=== PATIENT | male | born 1965 | race American Indian/Alaskan Native ===

== ENCOUNTER 2022-02-24 11:33 | Inpatient (IN) | payer BC ==
--- NOTE | 2022-02-24 12:52 | Emergency Department Report ---
ED General Adult HPI - General Chief complaint: Weakness Stated complaint: DR EDMONDS/DEHYDRATED Time Seen by Provider: 02/24/22 12:36 Source: patient, RN notes reviewed Mode of arrival: Ambulatory Limitations: No Limitations - History of Present Illness Initial comments: The patient was evaluated in the emergency department for symptoms described in the history of present illness. He/she was evaluated in the context of the global COVID-19 pandemic, which necessitated consideration that the patient might be at risk for infection with the virus that causes COVID-19. Institutional protocols and algorithms that pertain to the evaluation of patient s at risk for COVID-19 are in a state of rapid change based on information released by regulatory bodies including the CDC and federal and state organizations. These policies and algorithms were followed during the patient's care in the emergency department. Please note that these policies, procedures and recommendations changed on a rapid basis. This is a pleasant and cooperative 56-year-old gentleman, with reported history of bipolar, does not know his current medications, does not think that he is currently on valproic acid, Depakote, or lithium, who is referred to the department by his foxing closer for A. fib/flutter with RVR. Patient reported to triage nurse that he does have a history of A. fib, but thinks he may have had an ablation. He endorses very mild shortness of breath. He denies physical pain. No complaint of homicidality, suicidality, overdose or hallucinations. H e also denies recreational drug use, as well as bright red blood per rectum. Patient believes he has a distant history of A. fib, but believes it has been resolved for quite some time. Denies a history of ablation. Reports prior admissions to [facility], as well as [facility]. Does not current ly have a electric meter setter. Is not aware that he is currently in A. fib/flutter, does not know how long he has been in this rhythm for -: unknown - Related Data Allergies Allergy/AdvReac Type Severity Reaction Status Date / Time No Known Allergies Allergy Unverified 02/24/22 13:06 ED Review of Systems ROS: Stated complaint: DR EDMONDS/DEHYDRATED Other details as noted in HPI Constitutional: denies: fever Eyes: denies: eye discharge ENT: denies: epistaxis Respiratory: SOB at rest. denies: cough Cardiovascular: palpitations. denies: chest pain Gastrointestinal: denies: abdominal pain, hematemesis, melena, hematochezia Genitourinary: denies: dysuria Musculoskeletal: denies: myalgia Neurological: denies: weakness Psychiatric: denies: homicidal thoughts, suicidal thoughts ED Past Medical Hx - Past Medical History Hx Hypertension: Yes Additional medical history: Bipolar, insomnia, GI bleed, A.fib - Surgical History Additional Surgical History: ulcer repair, back surgery - Social History Smoking Status: Never Smoker ED Physical Exam - General Limitations: No Limitations General appearance: alert, anxious - Head Head exam: Present: atraumatic, normocephalic - Eye Eye exam: Present: normal appearance, EOMI. Absent: nystagmus - ENT ENT exam: Present: normal exam, normal orophraynx, mucous membranes moist, normal external ear exam - Neck Neck exam: Present: normal inspection, full ROM. Absent: tenderness, meningismus - Respiratory Respiratory exam: Present: normal lung sounds bilaterally. Absent: respiratory distress, wheezes, rales, rhonchi, stridor, decreased breath sounds - Cardiovascular Cardiovascular Exam: Present: tachycardia, irregular rhythm, normal heart sounds. Absent: systolic murmur, diastolic murmur, rubs, gallop - GI/Abdominal GI/Abdominal exam: Present: soft. Absent: distended, tenderness, guarding, rebound, rigid, pulsatile mass - Rectal Rectal exam: Present: deferred - Extremities Exam Extremities exam: Present: normal inspection, full ROM, pedal edema, other (2+ pulses noted in the bilateral upper and lower extremities. There is no palpable cord. negative Homans sign. Muscular compartments are soft. The pelvis is stable.). Absent: calf tenderness - Back Exam Back exam: Present: normal inspection. Absent: tenderness, CVA tenderness (R), CVA tenderness (L), paraspinal tenderness, vertebral tenderness - Neurological Exam Neurological exam: Present: alert, oriented X3, other (No facial droop. Tongue midline. Extraocular movements intact bilaterally. Facial sensation intact to light touch in V1, V2, V3 distribution bilaterally. 5 and a 5 strength in 4 extremities. Sensation intact to light touch in 4 extremities.). Absent: motor sensory deficit - Psychiatric Psychiatric exam: Present: normal affect, normal mood - Skin Skin exam: Present: warm, dry, intact, normal color. Absent: rash ED Course Vital Signs 02/24/22 02/24/22 02/24/22 11:37 13:06 13:17 Temperature 98.9 F Pulse Rate 79 181 H 160 H Respiratory 14 14 Rate Blood Pressure 112/66 94/58 Blood Pressure 110/65 [Left] O2 Sat by Pulse 99 100 Oximetry 02/24/22 13:30 Temperature Pulse Rate 156 H Respiratory Rate Blood Pressure 94/58 Blood Pressure [Left] O2 Sat by Pulse Oximetry - Reevaluation(s) Reevaluation #1: 02/24/22 13:14 Differential diagnosis, including but not limited to: A. fib with RVR, a flutter with RVR, electrolyte derangement, thyroid derangement Assessment and plan: 56-year-old gentleman, with narrow complex irregular tachycardia, who is clinically sober, in no acute distress. Blood pressure reviewed and appreciated, however, patient currently denies chest pain and shortness of breath. He is mentating appropriately at this time. Trial dose of diltiazem x2. If no success, start amiodarone. Low threshold to admit to stepdown versus ICU setting. If patient requires initiation of amiodarone, we will consult cardiology Reassess Discussed this plan of care with the patient. He is agreeable to the plan of care 02/24/22 14:25 Reevaluation #2: 02/24/22 13:15 He denies contraindications to systemic anticoagulation Patient did not really respond to diltiazem. He continues to rest comfortably. We will start amiodarone, 75 mg bolus, followed by drip. Have requested cardiology consultation, discussed with Roman Mendoza, nurse practitioner electric meter setter, working with [facility] cardiology. His group will follow in consultation. Laboratory studies show renal insufficiency and metabolic acidosis as well as hypomagnesemia. I have reached out to the patient's primary foxing closer, Annalisa Santiago He will follow in consultation. Request gentle fluids and maintenance fluids. Hospital physician, Dr. Alfred to admit. 1 points Stroke risk was 0.6% per year in >90,000 patients (the [place] Atrial Fibrill ation Cohort Study) and 0.9% risk of stroke/TIA/systemic embolism. RFANKO?DS?-VASc Score for Atrial Fibrillation Stroke Risk One recommendation suggests a 0 score for men or 1 score for women (no clinical risk factors) is low risk and may not require anticoagulation; a 1 score for men or 2 score for women is low-moderate risk and should consider antiplatelet or anticoagulation; and a score ?2 for men or ?3 for women is moderate-high risk and should otherwise be an anticoagulation candidate. We will order aspirin 02/24/22 13:59 02/24/22 14:19 ED Medical Decision Making - Lab Data Result diagrams: 02/24/22 12:57 02/24/22 12:57 Vital Signs 02/24/22 02/24/22 11:37 13:06 Temperature 98.9 F Pulse Rate 79 181 H Respiratory 14 Rate Blood Pressure 112/66 94/58 O2 Sat by Pulse 99 Oximetry - EKG Data -: EKG Interpreted by Ut Rate: tachycardia - EKG Data 02/24/22 13:13 There is no prior EKG available for comparison. The EKG shows a narrow complex irregular tachycardia, A. fib versus flutter. QTc 4 8 6 ms. Left ventricular hypertrophy. OH interval 3 1 6 ms. This is an abnormal EKG. This is not a STEMI but there is no prior for comparison - Radiology Data Radiology results: pending Critical Care Time: Yes Critical care time in (mins) excluding proc time.: 35 Critical care attestation.: If time is entered above; I have spent that time in minutes in the direct care of this critically ill patient, excluding procedure time. ED Disposition Clinical Impression: Atrial fibrillation with RVR, Renal insufficiency, Hypomagnesemia Disposition: ADMITTED INPATIENT Is pt being admited?: Yes Does the pt Need Aspirin: No Condition: Serious Referrals: TRUE BRIGGS MD [Primary Care Provider] - 3-5 Days
[2022-02-24] MEDS ORDERED: dilTIAZem 25 MG/5 ML INJ IV ONE ×2 (12:53→13:21)
[2022-02-24 13:24] LABS: Basophils # (Auto) 0.2 K/mm3 (0.0-0.1); Basophils % (Auto) 2.4 % (0.0-1.8); Eosinophils # (Auto) 0.2 K/mm3 (0.0-0.4); Eosinophils % (Auto) 2.7 % (0.0-4.3); Hematocrit 33.5 % (35.5-45.6); Lymphocytes # (Auto) 1.9 K/mm3 (1.2-5.4); Lymphocytes % (Auto) 28.7 % (13.4-35.0); Mean Corpuscular HGB Conc 33 % (32-34); Mean Corpuscular Volume 92 fl (84-94); Monocytes # (Auto) 0.8 K/mm3 (0.0-0.8); Monocytes % (Auto) 12.5 % (0.0-7.3); Platelet Count 169 K/mm3 (140-440); Red Blood Count 3.63 M/mm3 (3.65-5.03); Red Cell Distribution Width 14.7 % (13.2-15.2)
--- NOTE | 2022-02-24 13:26 | XRay Report ---
CHEST 1 VIEW 02/24/2022 1:11 PM INDICATION / CLINICAL INFORMATION: a fib rvr renal insufficiency. COMPARISON: None available. FINDINGS: SUPPORT DEVICES: None. HEART / MEDIASTINUM: No significant abnormality. LUNGS / PLEURA: No significant pulmonary or pleural abnormality. No pneumothorax. ADDITIONAL FINDINGS: No significant additional findings. IMPRESSION: 1. No acute findings. Signer Name: Ethan Lance MD Signed: 02/24/2022 1:22 PM Workstation Name: [id number]
[2022-02-24 13:38] LABS: INR 1.01 (0.87-1.13); Partial Thromboplastin Time 28.1 Sec. (24.2-36.6)
[2022-02-24 13:44] LABS: Albumin 4.6 g/dL (3.9-5); Calcium 8.5 mg/dL (8.4-10.2)
[2022-02-24] MEDS ORDERED: MAGNESIUM SULFATE 2 GM/50 ML BAG IV ONE (13:47)
[2022-02-24] MEDS ORDERED: AMIODARONE 75 MG in DEXTROSE 5% IN WATER 97 ML IV NR (13:54)
[2022-02-24] MEDS ORDERED: HEPARIN 10,000 UNITS/10 ML VIAL IV PRN (13:56)
[2022-02-24] MEDS ORDERED: HEPARIN 10,000 UNITS/10 ML VIAL IV ONE ×2 (13:56→16:00)
[2022-02-24] MEDS ORDERED: SODIUM CHLORIDE 0.9% 250ML 250 ML IV ONE (14:00)
[2022-02-24] MEDS ORDERED: ASPIRIN 81 MG TAB CHEW PO ONE (14:20)
[2022-02-24] MEDS ORDERED: HEPARIN/ 0.45% NACL DRIP 25,000 UNIT/500 ML BAG IV SCH (15:00)
--- NOTE | 2022-02-24 15:16 | History and Physical Report ---
History of Present Illness Chief complaint: My heart is beating fast History of present illness: 56 YO Male with HTN, Atrial Fib not currently taking therapeutic anticoagulation, Bipolar Disorder presents to ED for evaluation. Patient reports "my heart is beating fast". 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 Upon arrival and during his evaluation the patient was found to have a heart rate in the 180s. Patient found to be in atrial fibrillation with RVR. Patient was instructed to seek further care at [facility]. Patient transported to [facility] via private vehicle for further care and evaluation of the aforementioned symptoms. The patient was seen and evaluated in the emergency department. All lab and imaging studies reviewed. Patient found to have atrial fibrillation with rapid ventricular response with a heart rate in the 180s, with ATN, metabolic acidosis, elevated liver function test. Patient admitted to telemetry due to increased risk of worsening symptoms and for medical stabilization. Patient initiated on amiodarone drip with eventual control of patient heart rate. Cardiology team consulted in ED. Nephrology team consulted in ED. Patient denies fever, chills, chest pain, palpitation, productive cough, skin rash, recent contact, or known exposure to COVID-19. No prior admission for review. All medication listed at time of admission has been reconciled. Advanced care planning conducted in ED. GI team consulted in ED due to history of esophageal varices. Past History Past Medical History: atrial fib, hypertension, other (See HPI) Past Surgical History: Other (Back surgery, esophageal varices banding) Social history: , lives with family Family history: diabetes, hypertension Medications and Allergies Allergies Allergy/AdvReac Type Severity Reaction Status Date / Time No Known Allergies Allergy Unverified 02/24/22 13:06 Active Meds: Active Medications Amiodarone HCl 900 mg/ (Dextrose) 500 mls @ 33.333 mls/hr IV DIRECT JUNIOR; Protocol Amiodarone HCl 75 mg/ Dextrose 98.5 mls @ 600 mls/hr IV ONCE NR Stop: 02/24/22 16:00 Review of Systems Constitutional: no weight loss, no weight gain, no fever, no chills Ears, nose, mouth and throat: no ear pain, no decreased hearing, no sinus pressure, no sinus pain Cardiovascular: no chest pain, no orthopnea, no palpitations, no rapid/irregular heart beat, no shortness of breath Respiratory: no cough, no cough with sputum, no hemoptysis, no shortness of breath Gastrointestinal: no abdominal pain, no vomiting, no constipation, no change in bowel habits, no hematemesis Genitourinary Male: no dysuria, no hematuria, no discharge, no urinary frequency, no urinary hesitancy Rectal: no pain, no incontinence, no bleeding Musculoskeletal: no shooting arm pain, no arm numbness/tingling, no leg numbness/tingling Integumentary: no rash, no redness, no wounds, no jaundice Neurological: no paralysis, no weakness, no numbness, no tremors, no lack of coordination Psychiatric: no memory loss, no change in sleep habits, no sleep disturbances Endocrine: no cold intolerance, no excessive thirst, no polydipsia, no excessive sweating Hematologic/Lymphatic: no easy bruising Allergic/Immunologic: no urticaria, no allergic rhinitis, no wheezing Exam - Constitutional Vitals: Temp Pulse Resp BP Pulse Ox 98.9 F 156 H 14 94/58 100 02/24/22 11:37 02/24/22 13:30 02/24/22 13:17 02/24/22 13:30 02/24/22 13:17 General appearance: Present: mild distress - EENT Eyes: Present: PERRL ENT: hearing intact, clear oral mucosa - Neck Neck: Present: supple, normal ROM - Respiratory Respiratory effort: normal Respiratory: bilateral: CTA - Cardiovascular Heart Sounds: Present: S1 & S2. Absent: rub, click - Extremities Extremities: pulses symmetrical, No edema Peripheral Pulses: within normal limits - Abdominal General gastrointestinal: Present: soft, non-tender, non-distended, normal bowel sounds Male genitourinary: Present: normal - Integumentary Integumentary: Present: clear, warm, dry - Musculoskeletal Musculoskeletal: gait normal, strength equal bilaterally - Psychiatric Psychiatric: appropriate mood/affect, intact judgment & insight - Neurologic Neurologic: CNII-XII intact, moves all extremities Results - Labs CBC & Chem 7: 02/24/22 12:57 02/24/22 12:57 Labs: Abnormal lab results 02/24/22 02/24/22 02/24/22 Range/Units 12:57 12:57 12:57 RBC 3.63 L (3.65-5.03) M/mm3 Hgb 11.0 L (11.8-15.2) gm/dl Hct 33.5 L (35.5-45.6) % [place] % (Auto) 12.5 H (0.0-7.3) % Baso % (Auto) 2.4 H (0.0-1.8) % Baso # (Auto) 0.2 H (0.0-0.1) K/mm3 Sodium 135 L (137-145) mmol/L Chloride 97.7 L (98-107) mmol/L Carbon Dioxide 16 L (22-30) mmol/L BUN 28 H (9-20) mg/dL Creatinine 5.0 H (0.8-1.3) mg/dL Glucose 114 H (75-100) mg/dL Magnesium 1.50 L (1.7-2.3) mg/dL AST 227 H (5-40) units/L ALT 124 H (7-56) units/L Alkaline Phosphatase 170 H (35-129) units/L Total Creatine Kinase 333 H (55-170) units/L Salicylates < 0.3 L (2.8-20.0) mg/dL Acetaminophen (10.0-30.0) ug/mL Valproic Acid 15.9 L (50-100) ug/mL 02/24/22 Range/Units 12:57 RBC (3.65-5.03) M/mm3 Hgb (11.8-15.2) gm/dl Hct (35.5-45.6) % [place] % (Auto) (0.0-7.3) % Baso % (Auto) (0.0-1.8) % Baso # (Auto) (0.0-0.1) K/mm3 Sodium (137-145) mmol/L Chloride (98-107) mmol/L Carbon Dioxide (22-30) mmol/L BUN (9-20) mg/dL Creatinine (0.8-1.3) mg/dL Glucose (75-100) mg/dL Magnesium (1.7-2.3) mg/dL AST (5-40) units/L ALT (7-56) units/L Alkaline Phosphatase (35-129) units/L Total Creatine Kinase (55-170) units/L Salicylates (2.8-20.0) mg/dL Acetaminophen 5.0 L (10.0-30.0) ug/mL Valproic Acid (50-100) ug/mL Assessment and Plan - Patient Problems (1) Atrial fibrillation with RVR Current Visit: Yes Status: Acute Plan to address problem: Amiodarone drip initiated in ED, cardiology team consulted in ED, echocardiogram ordered and pending at time of admission, telemetry monitoring, further care and evaluation as per cardiology team. (2) Elevated liver function tests Current Visit: Yes Status: Acute Plan to address problem: Repeat LFT in a.m., supportive care. (3) Acute kidney injury (SHELLIE) with acute tubular necrosis (ATN) Current Visit: Yes Status: Acute Plan to address problem: Nephrology team consulted in ED, strict I's/O, monitor urine output every shift, daily weight, (4) Metabolic acidosis Current Visit: Yes Status: Acute Plan to address problem: IV fluid resuscitation therapy, BMP, repeat BMP in AM. (5) Bipolar disorder Current Visit: Yes Status: Acute Plan to address problem: Continue medical management, no acute exacerbation at this time, supportive care. (6) DVT prophylaxis Current Visit: Yes Status: Acute Plan to address problem: SCD to bilateral ultimately while in bed (7) Advance care planning Current Visit: Yes Status: Acute Plan to address problem: Disease education data, care plan discussed, diagnoses discussed, prognosis discussed, patient is full code. Patient knowledges understanding and agreement with care plan, +30 minutes. (8) Preventative health care Current Visit: Yes Status: Acute Plan to address problem: Patient counseled regarding risk factor reduction, medication compliance, outpatient follow-up with primary care physician for all age and risk factor appropriate screening test. +30 minutes.
[2022-02-24] MEDS ORDERED: ACETAMINOPHEN 325 MG TAB PO PRN (15:18)
[2022-02-24] MEDS ORDERED: oxyCODONE /ACETAMINOPHEN 5-325MG TAB PO PRN (15:18)
[2022-02-24] MEDS ORDERED: ONDANSETRON 4 MG/2 ML INJ IV PRN (15:18)
[2022-02-24] MEDS ORDERED: MORPHINE 4 MG/1 ML INJ IV PRN (15:18)
--- NOTE | 2022-02-24 15:26 | Consultation ---
History of Present Illness Consult date: 02/24/22 Requesting physician: HALINA AVILA History of present illness: Patient is a 56 y/o old male with a past medical history of CKD, bipolar disorder, PAF who reports to the ED today after being sent by his band attacher office. Patient reports that at his band attacher office he was found to be in A. fib with RVR and dehydrated and told to come to the ED for further evaluation. Patient at this time denies any complaints including palpitations, shortness of breath, dizziness, chest pain. Patient reports that he has been told he has had A. fib in the past however he reports that he has not been on anticoagulation and has not seen a health coach in over 15 years. Patient also reports a history of esophageal varices. He reports that he had a procedure to fix them. In the ED patient was found to be in A. fib with RVR rate up into the 170s. In the ED patient was given diltiazem with no reduction in heart rate. Patient is previously unknown to our practice. Cardiology is consulted for A. fib with RVR Past History Past Medical History: atrial fib, other (CKD) Past Surgical History: Other (Surgery for varices) Social history: other (Reports former ETOH use) Family history: diabetes Medications and Allergies Allergies Allergy/AdvReac Type Severity Reaction Status Date / Time No Known Allergies Allergy Unverified 02/24/22 13:06 Active Meds: Active Medications Acetaminophen (Acetaminophen 325 Mg Tab) 650 mg PO Q4H PRN PRN Reason: Pain MILD(1-3)/Fever >100.5/HURLEY Amiodarone HCl 900 mg/ (Dextrose) 500 mls @ 33.333 mls/hr IV DIRECT JUNIOR; Protocol Amiodarone HCl 75 mg/ Dextrose 98.5 mls @ 600 mls/hr IV ONCE NR Stop: 02/24/22 16:00 Morphine Sulfate (Morphine 4 Mg/1 Ml Inj) 2 mg IV Q8H PRN PRN Reason: Pain , Severe (7-10) Ondansetron HCl (Ondansetron 4 Mg/2 Ml Inj) 4 mg IV Q8H PRN PRN Reason: Nausea And Vomiting Oxycodone/Acetaminophen (Oxycodone /Acetaminophen 5-325mg Tab) 1 tab PO Q12H PRN PRN Reason: Pain, Moderate (4-6) Sodium Chloride (Sodium Chloride 0.9% 10 Ml Flush Syringe) 10 ml IV BID JUNIOR Sodium Chloride (Sodium Chloride 0.9% 10 Ml Flush Syringe) 10 ml IV PRN PRN PRN Reason: LINE FLUSH Review of Systems Constitutional: no weight loss, no weight gain Ears, nose, mouth and throat: no sinus pressure, no sinus pain Cardiovascular: no chest pain, no orthopnea, no palpitations, no lighthe adedness, no shortness of breath, no dyspnea on exertion Respiratory: no shortness of breath, no dyspnea on exertion Gastrointestinal: no abdominal pain, no nausea, no vomiting Musculoskeletal: no neck stiffness, no neck pain Integumentary: no rash, no pruritis, no redness Neurological: no head injury, no transient paralysis Psychiatric: no anxiety, no memory loss Endocrine: no cold intolerance, no heat intolerance Physical Examination Vital Signs Temp Pulse Resp BP Pulse Ox 98.9 F 79 14 112/66 99 02/24/22 11:37 02/24/22 11:37 02/24/22 11:37 02/24/22 11:37 02/24/22 11:37 General appearance: no acute distress Neck: Positive: trachea midline Cardiac: Positive: irregularly irregular, Tachycardia Lungs: Positive: Normal Breath Sounds Neuro: Positive: Grossly Intact Abdomen: Positive: Soft Skin: Negative: Rash, Suspicious Lesions, Ulceration Extremities: Present: upper extr. pulses. Absent: edema Results 02/24/22 12:57 02/24/22 12:57 Cardiac Enzymes 02/24/22 Range/Units 12:57 AST 227 H (5-40) units/L Coagulation 02/24/22 Range/Units 12:57 PT 14.7 (12.2-14.9) Sec. INR 1.01 (0.87-1.13) APTT 28.1 (24.2-36.6) Sec. CBC 02/24/22 Range/Units 12:57 WBC 6.7 (4.5-11.0) K/mm3 RBC 3.63 L (3.65-5.03) M/mm3 Hgb 11.0 L (11.8-15.2) gm/dl Hct 33.5 L (35.5-45.6) % Plt Count 169 (140-440) K/mm3 Lymph # (Auto) 1.9 (1.2-5.4) K/mm3 [place] # (Auto) 0.8 (0.0-0.8) K/mm3 Eos # (Auto) 0.2 (0.0-0.4) K/mm3 Baso # (Auto) 0.2 H (0.0-0.1) K/mm3 Comprehensive Metabolic Panel 02/24/22 Range/Units 12:57 Sodium 135 L (137-145) mmol/L Potassium 4.1 (3.6-5.0) mmol/L Chloride 97.7 L (98-107) mmol/L Carbon Dioxide 16 L (22-30) mmol/L BUN 28 H (9-20) mg/dL Creatinine 5.0 H (0.8-1.3) mg/dL Glucose 114 H (75-100) mg/dL Calcium 8.5 (8.4-10.2) mg/dL AST 227 H (5-40) units/L ALT 124 H (7-56) units/L Alkaline Phosphatase 170 H (35-129) units/L Total Protein 8.1 (6.3-8.2) g/dL Albumin 4.6 (3.9-5) g/dL - Imaging and Cardiology Echo: pending EKG interpretations - Telemetry EKG Rhythm: Atrial Fibrillation - EKG Supraventricular dysrhythmia: atrial fibrillation Repolarization changes or abnormalities: nonspecific abnormality, ST segment, and/or T wave Assessment and Plan Patient is a 56 y/o old male with a past medical history of CKD, bipolar disorder, PAF who reports to the ED today after being sent by his band attacher office after being found in A. fib with RVR and being told he was dehydrated Afib with RVR CKD-nephrology consulted Bipolar disorder Hypomagnesemia Plan: EKG shows A. fib with RVR 180 nonspecific T abnormalities. No acute ischemic changes. Patient denies any complaints of chest pain Patient has soft BPs, initiate half amiodarone bolus and drip LFTs noted to be elevated. We will repeat LFTs in the a.m. due to patient currently on amiodarone While patient H&H is currently stable patient does report history of bleeding esophageal varices. Would like GI clearance before initiating anticoagulation Echo pending While patient H&H is currently stable patient does report history of bleeding esophageal varices. Would like GI clearance before initiating anticoagulation [id number] Score for Atrial Fibrillation Stroke Risk =1 low risk Has bled score =2 points moderate risk of bleeding Patient seen in conjunction with Dr. Peña who agrees with this plan of care - Patient Problems (1) Atrial fibrillation with RVR Current Visit: Yes Status: Acute (2) Renal insufficiency Current Visit: Yes Status: Acute (3) Hypomagnesemia Current Visit: Yes Status: Acute
[2022-02-24] MEDS: AMIODARONE 900 MG in DEXTROSE 5% IN WATER 482 ML IV SCH (17:17)
[2022-02-24] MEDS ORDERED: METOPROLOL TARTRATE 5 MG/5 ML INJ IV ONE ×3 (22:12→23:17)
[2022-02-24] MEDS: SODIUM BICARBONATE 150 MEQ in WATER FOR INJECTION (PF) 1,000 ML IV SCH (23:48)
--- NOTE | 2022-02-24 23:59 | Event Note ---
Date: 02/24/22 will see patient in the AM If requires anticoagulation for now until I can evaluate and clear her, heparin drip would be acceptable from GI standpoint
[2022-02-25] MEDS: AMIODARONE 900 MG in DEXTROSE 5% IN WATER 482 ML IV SCH ×2 (02:39→10:29)
[2022-02-25 05:32] LABS: Basophils % (Auto) 0.9 % (0.0-1.8); Eosinophils # (Auto) 0.2 K/mm3 (0.0-0.4); Eosinophils % (Auto) 3.7 % (0.0-4.3); Hematocrit 33.4 % (35.5-45.6); Hemoglobin 11.1 gm/dl (11.8-15.2); Lymphocytes # (Auto) 1.8 K/mm3 (1.2-5.4); Lymphocytes % (Auto) 32.5 % (13.4-35.0); Mean Corpuscular HGB Conc 33 % (32-34); Mean Corpuscular Volume 91 fl (84-94); Monocytes # (Auto) 0.6 K/mm3 (0.0-0.8); Monocytes % (Auto) 10.1 % (0.0-7.3); Platelet Count 151 K/mm3 (140-440); Red Blood Count 3.66 M/mm3 (3.65-5.03); Red Cell Distribution Width 14.8 % (13.2-15.2)
[2022-02-25 05:44] LABS: Albumin 3.9 g/dL (3.9-5); Bilirubin,Direct 0.5 mg/dL (0-0.2)
[2022-02-25 05:51] LABS: Bacteria,Urine 1+ /HPF (Negative)
[2022-02-25 06:03] LABS: Creatinine,Urine 139.4 mg/dL (0.1-20.0)
[2022-02-25 06:12] LABS: Bilirubin,Urine Negative (Negative); Blood,Urine Trace (Negative); Color,Urine Yellow (Yellow); Protein,Urine <15 mg/dL mg/dL (Negative); Urobilinogen,Urine < 2.0 mg/dL (<2.0)
--- NOTE | 2022-02-25 07:03 | Consultation ---
History of Present Illness - Reason for Consult Consult date: 02/25/22 acute renal failure - History of Present Illness The patient is a 56 YO male with history of HTN, Bipolar disorder, Etoh abuse, Esophageal varices and PAF who [facility]22 from our office for evaluation of abnormal labs and low BP. He reports having decreased appetite, poor PO intake, intermittent N & V and orthostatic dizziness. His BP was 91/65 at the office. Patient denies any sob, cp, leg swelling, dysuria, hematuria, rash or syncope. In the ED he was found to have A.fib with RVR and volume depleted. His home meds include ARB and diuretics. He was also taking NSAIDs at home. In the ED patient was given Diltiazem with no reduction in heart rate. Patient was admitted to ICU. Labs notable for Creat 5, BUN 28, Bicarb 16, Hb 11 and elevated ALT & AST. CXR negative. Nephrology consulted for further evaluation and treatment of SHELLIE. Past History Past Medical History: atrial fib, hypertension, other (See HPI) Past Surgical History: Other (Back surgery, esophageal varices banding) Social history: , lives with family Family history: diabetes, hypertension Medications and Allergies Allergies Allergy/AdvReac Type Severity Reaction Status Date / Time No Known Allergies Allergy Unverified 02/24/22 13:06 Home Medications Medication Instructions Recorded Confirmed Last Taken Type ALPRAZolam [Xanax TAB] 0.5 mg PO HS 02/25/22 02/25/22 Unknown History Mirtazapine [Remeron] 15 mg PO HS 02/25/22 02/25/22 Unknown History QUEtiapine [SEROquel] 400 mg PO HS 02/25/22 02/25/22 Unknown History Valsartan/Hydrochlorothiazide 1 each PO DAILY 02/25/22 02/25/22 Unknown History [Valsartan-Hctz 160-25 mg Tab] amLODIPine [Norvasc] 10 mg PO DAILY 02/25/22 02/25/22 Unknown History clonazePAM [Klonopin] 1 mg PO HS 02/25/22 02/25/22 Unknown History lamoTRIgine [LaMICtal] 25 mg PO DAILY 02/25/22 02/25/22 Unknown History Active Meds: Active Medications Acetaminophen (Acetaminophen 325 Mg Tab) 650 mg PO Q4H PRN PRN Reason: Pain MILD(1-3)/Fever >100.5/[place] Amiodarone HCl 900 mg/ (Dextrose) 500 mls @ 33.333 mls/hr IV DIRECT JUNIOR; Protocol Last Admin: 02/25/22 02:39 Dose: 0.5 mg/min, 16.667 mls/hr Sodium Bicarbonate 150 meq/ (Sterile Water) 1,150 mls @ 100 mls/hr IV DIRECT JUNIOR Last Admin: 02/24/22 23:48 Dose: 100 mls/hr Morphine Sulfate (Morphine 4 Mg/1 Ml Inj) 2 mg IV Q8H PRN PRN Reason: Pain , Severe (7-10) Ondansetron HCl (Ondansetron 4 Mg/2 Ml Inj) 4 mg IV Q8H PRN PRN Reason: Nausea And Vomiting Oxycodone/Acetaminophen (Oxycodone /Acetaminophen 5-325mg Tab) 1 tab PO Q12H PRN PRN Reason: Pain, Moderate (4-6) Sodium Chloride (Sodium Chloride 0.9% 10 Ml Flush Syringe) 10 ml IV BID JUNIOR Sodium Chloride (Sodium Chloride 0.9% 10 Ml Flush Syringe) 10 ml IV PRN PRN PRN Reason: LINE FLUSH Review of Systems All systems: negative Exam - Vital Signs Vital signs: Vital Signs Temp Pulse Resp BP Pulse Ox 98.9 F 79 14 112/66 99 02/24/22 11:37 02/24/22 11:37 02/24/22 11:37 02/24/22 11:37 02/24/22 11:37 Results - Lab Results 02/26/22 13:38 02/26/22 13:38 Most recent lab results Calcium 8.0 mg/dL (8.4-10.2) L 02/25/22 04:36 Magnesium 1.50 mg/dL (1.7-2.3) L 02/24/22 12:57 Urine Creatinine 139.4 mg/dL (0.1-20.0) H 02/25/22 05:40 Urine Sodium 48 mmol/L 02/25/22 05:40 Assessment and Plan 1. Acute kidney injury: Vasomotor SHELLIE in the setting of volume depletion / hypotension and A.Fib with RVR. Urine studies and Renal US. IV fluids. Monitor renal function. Creatinine level improving. Avoid nephrotoxic agents. Meds dosage based on GFR. 2. FEN: Anion-gap metabolic acidosis, bicarb drip, monitor. Replete lytes as needed. Monitor lytes and volume status. 3. A.fib with RVR: Amio drip. Followed by Cards. Monitor. 4. Hypotension: Likely 2/2 volume depletion. Continue IV fluids. Monitor. 5. Cirrhosis, POA: GI consult. Monitor. 6. Bipolar Disorder // ETOH Abuse: Monitor for withdrawal. CIWA protocol as appropriate. 7. Normocytic Anemia, POA: Trend. Subjective: Patient was seen and examined at the bedside. Examination: General appearance: well-developed, appears stated age, no distress HEENT: atraumatic, [place] Neck: trachea midline Respiratory: ctab Heart: S1S2, irregular, tachycardia, no murmur Abdomen: soft, bowel sounds heard, NT Integumentary: no obvious rash Neurologic: AO, able to move extremitied Ext: no edema
[2022-02-25] MEDS: SODIUM BICARBONATE 150 MEQ in WATER FOR INJECTION (PF) 1,000 ML IV SCH ×2 (07:13→18:48)
--- NOTE | 2022-02-25 08:26 | Gastroenterology Consultation ---
History of Present Illness - Reason for Consult Consult date: 02/25/22 cirrhosis Requesting physician: HALINA AVILA - History of Present Illness This is a pleasant 56-year-old gentleman who presented due to A. fib with rapid ventricular response. GI is consulted due to history of cirrhosis and need for long-term anticoagulation for restratification of anticoagulation Of note, patient reports his last colonoscopy was about 5 years ago he thinks was normal however, he reports having a stomach ulcer within the last year that was diagnosed at [facility] Denies any current GI complaints Denies jaundice Does report drinking a few shots of gin every night for the last few years, he reports that he used to drink less though he has been drinking alcoholic beverages routinely for many years Obtained/updated/reviewed patient's current medications Outside [facility] Records: Op Note - Deysi Gallardo MD - 01/19/2021 10:47 AM EDT Images from the original note were not included. EGD Procedure note Jhoana Dean :1965 Age: 55 y.o. Admission Date: 01/17/2021 Procedure Date: 01/19/2021 PROCEDURE PERFORMED BY: Deysi Gallardo MD. PREPROCEDURE DIAGNOSIS: Hematemesis and Melena POSTPROCEDURE DIAGNOSIS: - 3 discrete esophageal ulcers, oblong in shape, 3-10 mm in size, one with an organizing adherent clot and 2 with black scabs scattered between 30 cm from the incisors down to GE junction at 40 cm. - 2 cm hiatal hernia with multiple small superficial ulcerations, all white based. -diffuse erythema and congestion of the gastric mucosa with mucosal red spots/petechiae, likely gastritis rather than portal gastropathy . -multiple, superficial, irregular, antral and pre-pyloric ulcers ranging in size from 2-4 mm. -multiple, superficial, irregular 1-3 mm ulcers in the posterior duodenal bulb. -no blood noted throughout the exam. -no biopsies in the setting of thrombocytopenia. OPERATION PERFORMED: Esophagogastroduodenoscopy SEDATION: Per Anesthesia. PROCEDURE DETAILS: After informed consent obtained, patient placed in left lateral position and IV sedation administered. Once comfortable, endoscope was advanced under direct visualization down to the second portion of the duodenum. Careful inspection of the esophagus, stomach, on forward and retroflexed views, and the duodenum was performed. Esophagus: See postprocedure diagnosis. Also photo documented Stomach: See postprocedure diagnosis. Also photo documented Duodenum: See postprocedure diagnosis. Also photo documented Air was suctioned out and scope withdrawn. RECOMMENDATIONS: -Acid suppression with a proton pump inhibitor., -start clear liquid diet. -follow platelet count and if continues to drop, consider hematology consultation. -continue ICU monitoring for 1 more day. -continue schedule Reglan to avoid vomiting. Esophagus at 30 cm Distal esophagus GEJ Antrum/preppyloric Antral ulers Distal bulb ulcers Distal bulb ulcers Gastritis-body Fundus and cardia Deysi Gallardo MD. [facility] [place] 01/19/2021 10:47 AM Op Note - Deyis Gallardo MD - 01/18/2021 11:43 AM EDT Images from the original note were not included. EGD Procedure note Jhoana Dean :1965 Age: 55 y.o. Admission Date: 01/17/2021 Procedure Date: 01/18/2021 PROCEDURE PERFORMED BY: Deysi Gallardo MD. PREPROCEDURE DIAGNOSIS: Hematemesis Acute blood loss anemia. POSTPROCEDURE DIAGNOSIS: -multiple ulcers, 2 of them relatively deep ranging in size from 8 to 10 mm, some of them with adherent clots, scattered in lower half of esophagus. No active bleeding.. -small hiatal hernia with numerous superficial. Ulcerations, nonbleeding -no esophageal varices. -large amount of clotted and fresh blood filling the stomach, with inability to bypass it to enter the antrum. -retroflexion did not demonstrate any varix in the cardia or proximal fundus but large, part of fundus not fully visualized. OPERATION PERFORMED: Esophagogastroduodenoscopy with SEDATION: Per Anesthesia. PROCEDURE DETAILS: After informed consent obtained, patient placed in left lateral position and IV sedation administered. Once comfortable, endoscope was advanced under direct visualization down to the proximal stomach. Careful inspection of the esophagus, stomach, on forward and retroflexed views, and the duodenum was performed. Esophagus: Multiple ulcers varying in size from 4-10 mm. Some of the ulcers with deep an oblong in shape. Adherent clot noted in some of them but no active bleeding. Scant fresh blood noted at the GE junction. Free reflux of old and fresh blood from the stomach. Stomach: Large amount of fresh blood, old blood and clotted blood filling the gastric lumen. Exam could not be performed beyond the proximal stomach. Retroflexion was performed showing scant blood at the GE junction, no large varix in the cardia and on partial view of the fundus. Duodenum: Not intubated. Air was suctioned out and scope withdrawn. RECOMMENDATIONS: -Acid suppression with a proton pump inhibitor., -continue octreotide for now as well. -maintain ICU monitoring with frequent H&H and transfusion as needed. - repeat EGD in the morning. - erythromycin 125 mg IV q.6 hourly to help gastric emptying Adehrent clot on ulcer near GEJ Retroflexion with no obvious varices in proximal fundus or cardia Multiple superficial ulcers in hiatal hernia Adherent clots in mid esophagus Deysi Gallardo MD. [facility] [place] 01/18/2021 11:43 AM Past History Past Medical History: atrial fib, hypertension, other (See HPI) Past Surgical History: Other (Back surgery, esophageal varices banding) Social history: , lives with family Family history: diabetes, hypertension Medications and Allergies Allergies Allergy/AdvReac Type Severity Reaction Status Date / Time No Known Allergies Allergy Unverified 02/24/22 13:06 Home Medications Medication Instructions Recorded Confirmed Last Taken Type ALPRAZolam [Xanax TAB] 0.5 mg PO HS 02/25/22 02/25/22 Unknown History Mirtazapine [Remeron] 15 mg PO HS 02/25/22 02/25/22 Unknown History QUEtiapine [SEROquel] 400 mg PO HS 02/25/22 02/25/22 Unknown History Valsartan/Hydrochlorothiazide 1 each PO DAILY 02/25/22 02/25/22 Unknown History [Valsartan-Hctz 160-25 mg Tab] amLODIPine [Norvasc] 10 mg PO DAILY 02/25/22 02/25/22 Unknown History clonazePAM [Klonopin] 1 mg PO HS 02/25/22 02/25/22 Unknown History lamoTRIgine [LaMICtal] 25 mg PO DAILY 02/25/22 02/25/22 Unknown History Active Meds: Active Medications Acetaminophen (Acetaminophen 325 Mg Tab) 650 mg PO Q4H PRN PRN Reason: Pain MILD(1-3)/Fever >100.5/[place] Amiodarone HCl 900 mg/ (Dextrose) 500 mls @ 33.333 mls/hr IV DIRECT JUNIOR; Protocol Last Admin: 02/25/22 02:39 Dose: 0.5 mg/min, 16.667 mls/hr Sodium Bicarbonate 150 meq/ (Sterile Water) 1,150 mls @ 100 mls/hr IV DIRECT JUNIOR Last Admin: 02/25/22 07:13 Dose: 100 mls/hr Morphine Sulfate (Morphine 4 Mg/1 Ml Inj) 2 mg IV Q8H PRN PRN Reason: Pain , Severe (7-10) Ondansetron HCl (Ondansetron 4 Mg/2 Ml Inj) 4 mg IV Q8H PRN PRN Reason: Nausea And Vomiting Oxycodone/Acetaminophen (Oxycodone /Acetaminophen 5-325mg Tab) 1 tab PO Q12H PRN PRN Reason: Pain, Moderate (4-6) Polyethylene Glycol/Electrolytes (Polyethylene Glycol/Elect Soln 4000 Ml) 4,000 ml PO ONCE@1800 JUNIOR Stop: 02/25/22 22:00 Sodium Chloride (Sodium Chloride 0.9% 10 Ml Flush Syringe) 10 ml IV BID JUNIOR Sodium Chloride (Sodium Chloride 0.9% 10 Ml Flush Syringe) 10 ml IV PRN PRN PRN Reason: LINE FLUSH Review of Systems - Review of Systems All systems: negative (10 systems reviewed and negative except as mentioned above in the history of present illness) Exam - Constitutional Vital Signs: Temp Pulse Resp BP Pulse Ox 98.9 F 160 H 16 81/60 100 02/24/22 11:37 02/25/22 05:33 02/25/22 05:33 02/25/22 02:30 02/25/22 05:33 General appearance: no acute distress - EENT Eyes: EOM intact - Neck Neck: supple - Respiratory Respiratory effort: normal - Cardiovascular Rhythm: irregularly irregular - Gastrointestinal General gastrointestinal: Present: soft, non-tender - Integumentary Integumentary: Present: dry - Musculoskeletal Musculoskeletal: normal - Neurologic Neurological: alert and oriented x3 - Psychiatric Psychiatric: appropriate mood/affect - Labs CBC & Chem 7: 02/25/22 04:36 02/25/22 04:36 Lab Results: Laboratory Results - last 24 hr 02/24/22 02/24/22 02/24/22 12:57 12:57 12:57 WBC 6.7 RBC 3.63 L Hgb 11.0 L Hct 33.5 L MCV 92 MCH 30 MCHC 33 RDW 14.7 Plt Count 169 Lymph % (Auto) 28.7 [place] % (Auto) 12.5 H Eos % (Auto) 2.7 Baso % (Auto) 2.4 H Lymph # (Auto) 1.9 [place] # (Auto) 0.8 Eos # (Auto) 0.2 Baso # (Auto) 0.2 H Seg Neutrophils % 53.7 Seg Neutrophils # 3.6 PT 14.7 INR 1.01 APTT 28.1 Sodium 135 L Potassium 4.1 Chloride 97.7 L Carbon Dioxide 16 L Anion Gap 25 BUN 28 H Creatinine 5.0 H Estimated GFR 15 BUN/Creatinine Ratio 6 Glucose 114 H Calcium 8.5 Magnesium 1.50 L Total Bilirubin 0.60 Direct Bilirubin Indirect Bilirubin AST 227 H ALT 124 H Alkaline Phosphatase 170 H Total Creatine Kinase 333 H Total Protein 8.1 Albumin 4.6 Albumin/Globulin Ratio 1.3 TSH Urine Color Urine Turbidity Urine pH Ur Specific [place] Urine Protein Urine Glucose (UA) Urine Ketones Urine Blood Urine Nitrite Ur Reducing Substances Urine Bilirubin Urine Ictotest Urine Urobilinogen Ur Leukocyte Esterase Urine WBC (Auto) Urine RBC (Auto) Urine Bacteria (Auto) Urine Eosinophils Urine Creatinine Urine Sodium Salicylates Acetaminophen Valproic Acid [place] 02/24/22 02/24/22 02/24/22 12:57 12:57 12:57 WBC RBC Hgb Hct MCV MCH MCHC RDW Plt Count Lymph % (Auto) [place] % (Auto) Eos % (Auto) Baso % (Auto) Lymph # (Auto) [place] # (Auto) Eos # (Auto) Baso # (Auto) Seg Neutrophils % Seg Neutrophils # PT INR APTT Sodium Potassium Chloride Carbon Dioxide Anion Gap BUN Creatinine Estimated GFR BUN/Creatinine Ratio Glucose Calcium Magnesium Total Bilirubin Direct Bilirubin Indirect Bilirubin AST ALT Alkaline Phosphatase Total Creatine Kinase Total Protein Albumin Albumin/Globulin Ratio TSH 1.640 Urine Color Urine Turbidity Urine pH Ur Specific [place] Urine Protein Urine Glucose (UA) Urine Ketones Urine Blood Urine Nitrite Ur Reducing Substances Urine Bilirubin Urine Ictotest Urine Urobilinogen Ur Leukocyte Esterase Urine WBC (Auto) Urine RBC (Auto) Urine Bacteria (Auto) Urine Eosinophils Urine Creatinine Urine Sodium Salicylates < 0.3 L Acetaminophen 5.0 L Valproic Acid 15.9 L [place] 0.1 02/25/22 02/25/22 02/25/22 04:36 04:36 05:40 WBC 5.5 RBC 3.66 Hgb 11.1 L Hct 33.4 L MCV 91 MCH 30 MCHC 33 RDW 14.8 Plt Count 151 Lymph % (Auto) 32.5 [place] % (Auto) 10.1 H Eos % (Auto) 3.7 Baso % (Auto) 0.9 Lymph # (Auto) 1.8 [place] # (Auto) 0.6 Eos # (Auto) 0.2 Baso # (Auto) 0.0 Seg Neutrophils % 52.8 Seg Neutrophils # 2.9 PT INR APTT Sodium 134 L Potassium 3.9 Chloride 93.7 L Carbon Dioxide 21 L Anion Gap 23 BUN 27 H Creatinine 3.1 H Estimated GFR 25 BUN/Creatinine Ratio 9 Glucose 117 H Calcium 8.0 L Magnesium Total Bilirubin 0.90 Direct Bilirubin 0.5 H Indirect Bilirubin 0.4 AST 220 H ALT 130 H Alkaline Phosphatase 158 H Total Creatine Kinase Total Protein 7.5 Albumin 3.9 Albumin/Globulin Ratio 1.1 TSH Urine Color Yellow Urine Turbidity Clear Urine pH 5.0 Ur Specific [place] 1.015 Urine Protein <15 mg/dl Urine Glucose (UA) Negative Urine Ketones Negative Urine Blood Trace Urine Nitrite Negative Ur Reducing Substances Not Reportable Urine Bilirubin Negative Urine Ictotest Not Reportable Urine Urobilinogen < 2.0 Ur Leukocyte Esterase Negative Urine WBC (Auto) 2.0 Urine RBC (Auto) 1.0 Urine Bacteria (Auto) 1+ Urine Eosinophils Urine Creatinine Urine Sodium Salicylates Acetaminophen Valproic Acid [place] 02/25/22 02/25/22 05:40 05:40 WBC RBC Hgb Hct MCV MCH MCHC RDW Plt Count Lymph % (Auto) [place] % (Auto) Eos % (Auto) Baso % (Auto) Lymph # (Auto) [place] # (Auto) Eos # (Auto) Baso # (Auto) Seg Neutrophils % Seg Neutrophils # PT INR APTT Sodium Potassium Chloride Carbon Dioxide Anion Gap BUN Creatinine Estimated GFR BUN/Creatinine Ratio Glucose Calcium Magnesium Total Bilirubin Direct Bilirubin Indirect Bilirubin AST ALT Alkaline Phosphatase Total Creatine Kinase Total Protein Albumin Albumin/Globulin Ratio TSH Urine Color Urine Turbidity Urine pH Ur Specific [place] Urine Protein Urine Glucose (UA) Urine Ketones Urine Blood Urine Nitrite Ur Reducing Substances Urine Bilirubin Urine Ictotest Urine Urobilinogen Ur Leukocyte Esterase Urine WBC (Auto) Urine RBC (Auto) Urine Bacteria (Auto) Urine Eosinophils None seen Urine Creatinine 139.4 H Urine Sodium 48 Salicylates Acetaminophen Valproic Acid [place] Assessment and Plan Given patient with history of life-threatening peptic ulcer bleed and need for long-term anticoagulation recommend EGD prior to long-term anticoagulation. Additionally, as patient has not had a colonoscopy many years would recommend colonoscopy at the same time. Therefore for risk stratification recommend EGD and colonoscopy tomorrow Suspect alcohol major cause of the patient's cirrhosis however will order labs for remainder of evaluation of etiology - Patient Problems (1) Cirrhosis of liver Current Visit: Yes Status: Acute (2) retirement (current) use of anticoagulants Current Visit: Yes Status: Acute (3) History of gastric ulcer Current Visit: Yes Status: Acute
--- NOTE | 2022-02-25 09:18 | Consultation ---
History of Present Illness Consult date: 02/25/22 Requesting physician: RASHID MENDIOLA Reason for consult: other (Afib with RVR, Renal failure) History of present illness: 56 YO Male with HTN, Atrial Fib not currently taking therapeutic anticoagulation, Bipolar Disorder presents to ED for evaluation. Patient reports "my heart is beating fast". 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 Upon arrival and during his evaluation the patient was found to have a heart rate in the 180s and was told he was dehydrated. He was told to present to the ED Patient found to be in atrial fibrillation with RVR. Patient was instructed to seek further care at [facility]. Patient transported to [facility] via private vehicle for further care and evaluation. The patient was seen and evaluated in the emergency department was found to be in Afib with a rapid ventricular response and was hypotensive. He has been admitted to the ICU and a critical care consult has been placed. Patient seen and examined. Vitals, labs, medications, chart reviewed. He is currently on Amiodarone infusion at 1mg/hour with SBP 110 Past History Past Medical History: atrial fib, hypertension, other (See HPI) Past Surgical History: Other (Back surgery, esophageal varices banding) Social history: , lives with family Family history: diabetes, hypertension Medications and Allergies Allergies Allergy/AdvReac Type Severity Reaction Status Date / Time No Known Allergies Allergy Unverified 02/24/22 13:06 Home Medications Medication Instructions Recorded Confirmed Last Taken Type ALPRAZolam [Xanax TAB] 0.5 mg PO HS 02/25/22 02/25/22 Unknown History Mirtazapine [Remeron] 15 mg PO HS 02/25/22 02/25/22 Unknown History QUEtiapine [SEROquel] 400 mg PO HS 02/25/22 02/25/22 Unknown History Valsartan/Hydrochlorothiazide 1 each PO DAILY 02/25/22 02/25/22 Unknown History [Valsartan-Hctz 160-25 mg Tab] amLODIPine [Norvasc] 10 mg PO DAILY 02/25/22 02/25/22 Unknown History clonazePAM [Klonopin] 1 mg PO HS 02/25/22 02/25/22 Unknown History lamoTRIgine [LaMICtal] 25 mg PO DAILY 02/25/22 02/25/22 Unknown History Active Meds: Active Medications Acetaminophen (Acetaminophen 325 Mg Tab) 650 mg PO Q4H PRN PRN Reason: Pain MILD(1-3)/Fever >100.5/HURLEY Amiodarone HCl 900 mg/ (Dextrose) 500 mls @ 33.333 mls/hr IV DIRECT JUNIOR; Protocol Last Admin: 02/25/22 02:39 Dose: 0.5 mg/min, 16.667 mls/hr Sodium Bicarbonate 150 meq/ (Sterile Water) 1,150 mls @ 100 mls/hr IV DIRECT JUNIOR Last Admin: 02/25/22 07:13 Dose: 100 mls/hr Morphine Sulfate (Morphine 4 Mg/1 Ml Inj) 2 mg IV Q8H PRN PRN Reason: Pain , Severe (7-10) Ondansetron HCl (Ondansetron 4 Mg/2 Ml Inj) 4 mg IV Q8H PRN PRN Reason: Nausea And Vomiting Oxycodone/Acetaminophen (Oxycodone /Acetaminophen 5-325mg Tab) 1 tab PO Q12H PRN PRN Reason: Pain, Moderate (4-6) Pantoprazole Sodium (Pantoprazole 40 Mg Inj) 40 mg IV QDAY JUNIOR Polyethylene Glycol/Electrolytes (Polyethylene Glycol/Elect Soln 4000 Ml) 4,000 ml PO ONCE@1800 JUNIOR Stop: 02/25/22 22:00 Sodium Chloride (Sodium Chloride 0.9% 10 Ml Flush Syringe) 10 ml IV BID JUNIOR Sodium Chloride (Sodium Chloride 0.9% 10 Ml Flush Syringe) 10 ml IV PRN PRN PRN Reason: LINE FLUSH Review of Systems Constitutional: no weight loss, no weight gain, no fever, no chills Cardiovascular: palpitations, rapid/irregular heart beat, no syncope, no lightheadedness, no shortness of breath Respiratory: no cough, no hemoptysis, no shortness of breath, no dyspnea on exertion Gastrointestinal: no abdominal pain, no nausea, no vomiting, no diarrhea, no co nstipation, no change in bowel habits Neurological: no head injury, no transient paralysis, no seizures, no syncope, no tremors Hematologic/Lymphatic: no easy bruising, no easy bleeding, no lymphadenopathy, no lymphedema Allergic/Immunologic: no urticaria, no allergic rhinitis, no wheezing Physical Examination Vital signs: Vital Signs Temp Pulse Resp BP Pulse Ox 98.9 F 79 14 112/66 99 02/24/22 11:37 02/24/22 11:37 02/24/22 11:37 02/24/22 11:37 02/24/22 11:37 General appearance: Present: no acute distress, well-nourished, obese - EENT Eyes: Present: PERRL, EOM intact ENT: hearing intact - Neck Neck: Present: normal ROM - Respiratory Respiratory effort: normal Respiratory: bilateral: diminished - Cardiovascular Rhythm: irregularly irregular Heart Sounds: Present: S1 & S2 - Extremities Extremities: no ischemia, pulses intact, pulses symmetrical Extremity abnormal: edema - Peripheral Assessment Generalized Edema Type: Non-pitting Edema Degree: 1+ Capillary Refill: < 3 seconds Skin Temperature: Warm Peripheral Pulses: within normal limits - Abdominal General gastrointestinal: soft, non-distended, normal bowel sounds - Integumentary Integumentary: Present: clear, warm, dry - Psychiatric Psychiatric: appropriate mood/affect, cooperative - Neurologic Neurologic: CNII-XII intact, moves all extremities - Allied Health Allied health notes reviewed: nursing, case management Results - Laboratory Findings CBC and BMP: 02/26/22 04:24 02/26/22 04:24 PT/INR, D-dimer PT 14.7 Sec. (12.2-14.9) 02/24/22 12:57 INR 1.01 (0.87-1.13) 02/24/22 12:57 Abnormal lab findings: Abnormal Labs 02/24/22 02/24/22 02/24/22 12:57 12:57 12:57 RBC 3.63 L Hgb 11.0 L Hct 33.5 L Mcintosh % (Auto) 12.5 H Baso % (Auto) 2.4 H Baso # (Auto) 0.2 H Sodium 135 L Chloride 97.7 L Carbon Dioxide 16 L BUN 28 H Creatinine 5.0 H Glucose 114 H Calcium Magnesium 1.50 L Direct Bilirubin AST 227 H ALT 124 H Alkaline Phosphatase 170 H Total Creatine Kinase 333 H Urine Creatinine Salicylates < 0.3 L Acetaminophen Valproic Acid 15.9 L 02/24/22 02/25/22 02/25/22 12:57 04:36 04:36 RBC Hgb 11.1 L Hct 33.4 L Mcintosh % (Auto) 10.1 H Baso % (Auto) Baso # (Auto) Sodium 134 L Chloride 93.7 L Carbon Dioxide 21 L BUN 27 H Creatinine 3.1 H Glucose 117 H Calcium 8.0 L Magnesium Direct Bilirubin 0.5 H AST 220 H ALT 130 H Alkaline Phosphatase 158 H Total Creatine Kinase Urine Creatinine Salicylates Acetaminophen 5.0 L Valproic Acid 02/25/22 05:40 RBC Hgb Hct Mcintosh % (Auto) Baso % (Auto) Baso # (Auto) Sodium Chloride Carbon Dioxide BUN Creatinine Glucose Calcium Magnesium Direct Bilirubin AST ALT Alkaline Phosphatase Total Creatine Kinase Urine Creatinine 139.4 H Salicylates Acetaminophen Valproic Acid Assessment and Plan Atrial Fibrillation with RVR Hypotension Elevated Liver Function Tests H/o Esophageal Varices Probable Alcoholic Liver Cirrhosis Acute on Chronic Kidney Injury Bipolar Disorder Alcohol use disorder -Give another bolus of Amiodarone for rate control. Metoprolol on hold secondary to hypotension Monitor for toxicities- trend LFTs. The patient has baseline liver disease and is also on amiodarone. He has risk of amiodarone induced hepatotoxicity -Keep MAP>65, to allow for renal perfusion and recovery -Continue with volume resuscitation while monitoring urine output Currently on bicarbonate infusion -Avoid nephrotoxins, adjust all medications for GFR and CrCL -CXR as clinically indicated -Awaiting GI scope prior to initiation of therapeutic anticoagulation- patient has a history of varices, s/p banding -Alcohol withdrawal precautions, CIWA protocol -Monitor and replace electrolytes as needed -Maintain sleep-wake cycle, limit delirium -SCDs for VTE prophylaxis, once upper endoscopy is done, will initiate therapeutic anticoagulation based on GI risk stratification -Chronic home medications as clinically indicated -Supportive care -Supportive transfusions as clinically indicated to keep HgB>7g/dL -Continue with Pantoprazole -Follow up transthoracic echocardiography results, follow up TSH results -Avoid hyoglycemia, currently NPO CONDITION: CRITICAL PROGNOSIS: GUARDED CODE STATUS: FULL CODE The high probability of a clinically significant, sudden or life threatening deterioration of the cardiovascular, renal , hepatology system(s) required my full and direct attention, intervention and personal management. The aggregate critical care time was [34] minutes. This time is in addition to time spent performing reported procedures but includes the following: [x] Data Review and interpretation [x] Patient assessment and monitoring of vital signs [x] Documentation [x] Medication orders and management
--- NOTE | 2022-02-25 09:40 | Ultrasound Report ---
ULTRASOUND RENAL INDICATION / CLINICAL INFORMATION: Acute renal failure.. COMPARISON: None available. FINDINGS: RIGHT KIDNEY: Length = 9.6 cm. [normal > 9 cm] - Parenchymal Thickness = 1.4 cm. [normal > 1.5 cm] - Echogenicity: Normal. - Hydronephrosis: None. - Cyst or mass: No significant abnormality. - Stones: None seen. LEFT KIDNEY: Length = 11.2 cm. [normal > 9 cm] - Parenchymal Thickness = 1.1 cm. [normal > 1.5 cm] - Echogenicity: Normal. - Hydronephrosis: None. - Cyst or mass: No significant abnormality. - Stones: None seen. URINARY BLADDER: No significant abnormality. FREE FLUID: None. ADDITIONAL FINDINGS: None. IMPRESSION: No significant abnormality. Signer Name: Charles Fernandez Jr, MD Signed: 02/25/2022 9:36 AM Workstation Name: [id number]
[2022-02-25] MEDS ORDERED: SODIUM CHLORIDE 0.9% 500 ML 500 ML IV ONE (10:00)
[2022-02-25] MEDS ORDERED: AMIODARONE 150 MG in DEXTROSE 5% IN WATER 97 ML IV SCH (10:00)
[2022-02-25] MEDS: PANTOPRAZOLE 40 MG INJ IV SCH (10:16)
--- NOTE | 2022-02-25 11:15 | Progress Note ---
<FRANNY TERESA - Last Filed: 02/25/22 18:01> Assessment and Plan Assessment and plan: This is a 56-year-old male with known past medical history of HTN, Bipolar disorder, kidney disease, and paroxysmal Afib currently not on any coagulation admitted for Afib with RVR and acute on chronic SHELLIE Hospital Course to Date: 02/25: Remains in Afib with RVR on Amiodarone gtt, BP marginal. Plan for addit ional Amio bolus and IVF bolus per Cardio. Continue Amio gtt, not a candiate for BB at this time due to low BP. Plan for EGD in the am per GI, continue to hold AC and trend LFTs. Medical records requested from patient's PCP. Renal function improved this am, continue bcarb gtt per Nephrology. Assessment and Plan #Atrial Fibrillation with RVR #Hypotension - Presented from Neurologist's office due to tachycardia and hypotension - EKG revealed Afib with RVR, HR in the 180s - Amiodarone gtt was initiated - Cardiology consulted, appreciated recommendations - 2D echo noted, LVEF approximately 55%. See report for detail - Patient remains in Afib RVR this am with marginal BP despite Amio gtt - Plan for additional Amio bolus and IVF, continue Amio gtt at 1mcg per Cardio - Patient is not a candiate for BB at this time due to low BP - Continue blood pressure monitor per protocol - Maintain MAP above 65 - AC on hold for now still clear by GI due to Esophageal Varices #Elevated Liver Function Tests #H/o Esophageal Varices #Probable Alcoholic Liver Cirrhosis - Presented with elevated LFTs - Per reported daily ETOH abuse for over 30 years - Patient also reported prior history of esophageal varices - GI consulted, appreciated recommendations - Plan for EGD in the am - Hold AC until cleared by GI - Continue to trend LFTs #Acute on Chronic Kidney Injury - Sent from Neurologist's office. 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 of 5.0, Scr improved to 3.1 this am - Nephrology on consult, appreciated recommendation - On Bcarb gtt - Strict intake and output - Avoid nephrotoxic medications; Renally dose medications - Monitor and replace electrolytes as needed #Bipolar Disorder #ETOH Abuse - Continue medical management, no acute exacerbation at this time - Resume home meds once list is available - Daily ETOH abuse, monitor for s/s of withdrawal - CIWA protocol if with s/s of ETOH withdrawal #GI/DVT Prophylaxis - PPI- Pecid - SCD to bilateral ultimately while in bed #Advance Care Planning - Disease education data, care plan, diagnoses, and prognosis were discussed with patient at the bedside. Patient is a FULL code. Patient acknowledged understanding and agreed with current care plan. The high probability of a clinically significant, sudden or life threatening deterioration of the [multiple] system(s) required my full and direct attention, intervention and personal management. The aggregate critical care time was [60] minutes. This time is in addition to time spent performing reported procedures but includes the following: [x] Data Review and interpretation [x] Patient assessment and monitoring of vital signs [x] Documentation [x] Medication orders and management Disposition Plan: ICU Total Time Spent with Patient (Minutes): 60 History Interval history: Patient seen and examined at the bedside. Fully AAO, on RA, denied any pain nor any discomfort at this time. Patient is in Afib withg RVR on the monitor, HR in the 120s-150, on Amiodarone gtt. BP is marginal Hospitalist Physical - Constitutional Vitals: Temp Pulse Resp BP Pulse Ox 98.9 F 154 H 16 81/60 100 02/24/22 11:37 02/25/22 08:44 02/25/22 08:00 02/25/22 02:30 02/25/22 11:12 General appearance: Present: no acute distress, well-nourished, obese - EENT Eyes: Present: PERRL, EOM intact ENT: hearing intact - Neck Neck: Present: normal ROM - Respiratory Respiratory effort: normal Respiratory: bilateral: diminished - Cardiovascular Rhythm: irregularly irregular Heart Sounds: Present: S1 & S2 - Extremities Extremities: no ischemia, pulses intact, pulses symmetrical Extremity abnormal: edema - Peripheral Assessment Generalized Edema Type: Non-pitting Edema Degree: 1+ Capillary Refill: < 3 seconds Skin Temperature: Warm Peripheral Pulses: within normal limits - Abdominal General gastrointestinal: soft, non-distended, normal bowel sounds - Integumentary Integumentary: Present: clear, warm, dry - Psychiatric Psychiatric: appropriate mood/affect, cooperative - Neurologic Neurologic: CNII-XII intact, moves all extremities - Allied Health Allied health notes reviewed: nursing, case management Results - Labs CBC & Chem 7: 02/25/22 04:36 02/25/22 04:36 Labs: Laboratory Last Values WBC 5.5 K/mm3 (4.5-11.0) 02/25/22 04:36 RBC 3.66 M/mm3 (3.65-5.03) 02/25/22 04:36 Hgb 11.1 gm/dl (11.8-15.2) L 02/25/22 04:36 Hct 33.4 % (35.5-45.6) L 02/25/22 04:36 MCV 91 fl (84-94) 02/25/22 04:36 MCH 30 pg (28-32) 02/25/22 04:36 MCHC 33 % (32-34) 02/25/22 04:36 RDW 14.8 % (13.2-15.2) 02/25/22 04:36 Plt Count 151 K/mm3 (140-440) 02/25/22 04:36 Lymph % (Auto) 32.5 % (13.4-35.0) 02/25/22 04:36 White % (Auto) 10.1 % (0.0-7.3) H 02/25/22 04:36 Eos % (Auto) 3.7 % (0.0-4.3) 02/25/22 04:36 Baso % (Auto) 0.9 % (0.0-1.8) 02/25/22 04:36 Lymph # (Auto) 1.8 K/mm3 (1.2-5.4) 02/25/22 04:36 White # (Auto) 0.6 K/mm3 (0.0-0.8) 02/25/22 04:36 Eos # (Auto) 0.2 K/mm3 (0.0-0.4) 02/25/22 04:36 Baso # (Auto) 0.0 K/mm3 (0.0-0.1) 02/25/22 04:36 Seg Neutrophils % 52.8 % (40.0-70.0) 02/25/22 04:36 Seg Neutrophils # 2.9 K/mm3 (1.8-7.7) 02/25/22 04:36 PT 14.7 Sec. (12.2-14.9) 02/24/22 12:57 INR 1.01 (0.87-1.13) 02/24/22 12:57 APTT 28.1 Sec. (24.2-36.6) 02/24/22 12:57 Sodium 134 mmol/L (137-145) L 02/25/22 04:36 Potassium 3.9 mmol/L (3.6-5.0) 02/25/22 04:36 Chloride 93.7 mmol/L (98-107) L 02/25/22 04:36 Carbon Dioxide 21 mmol/L (22-30) L 02/25/22 04:36 Anion Gap 23 mmol/L 02/25/22 04:36 BUN 27 mg/dL (9-20) H 02/25/22 04:36 Creatinine 3.1 mg/dL (0.8-1.3) H 02/25/22 04:36 Estimated GFR 25 ml/min 02/25/22 04:36 BUN/Creatinine Ratio 9 % 02/25/22 04:36 Glucose 117 mg/dL (75-100) H 02/25/22 04:36 Calcium 8.0 mg/dL (8.4-10.2) L 02/25/22 04:36 Magnesium 1.50 mg/dL (1.7-2.3) L 02/24/22 12:57 Total Bilirubin 0.90 mg/dL (0.1-1.2) 02/25/22 04:36 Direct Bilirubin 0.5 mg/dL (0-0.2) H 02/25/22 04:36 Indirect Bilirubin 0.4 mg/dL 02/25/22 04:36 AST 220 units/L (5-40) H 02/25/22 04:36 ALT 130 units/L (7-56) H 02/25/22 04:36 Alkaline Phosphatase 158 units/L (35-129) H 02/25/22 04:36 Total Creatine Kinase 333 units/L (55-170) H 02/24/22 12:57 Total Protein 7.5 g/dL (6.3-8.2) 02/25/22 04:36 Albumin 3.9 g/dL (3.9-5) 02/25/22 04:36 Albumin/Globulin Ratio 1.1 % 02/25/22 04:36 TSH 1.640 mlU/mL (0.270-4.200) 02/24/22 12:57 Urine Color Yellow (Yellow) 02/25/22 05:40 Urine Turbidity Clear (Clear) 02/25/22 05:40 Urine pH 5.0 (5.0-7.0) 02/25/22 05:40 Ur Specific [place] 1.015 (1.003-1.030) 02/25/22 05:40 Urine Protein <15 mg/dl mg/dL (Negative) 02/25/22 05:40 Urine Glucose (UA) Negative mg/dL (Negative) 02/25/22 05:40 Urine Ketones Negative mg/dL (Negative) 02/25/22 05:40 Urine Blood Trace (Negative) 02/25/22 05:40 Urine Nitrite Negative (Negative) 02/25/22 05:40 Ur Reducing Substances Not Reportable 02/25/22 05:40 Urine Bilirubin Negative (Negative) 02/25/22 05:40 Urine Ictotest Not Reportable 02/25/22 05:40 Urine Urobilinogen < 2.0 mg/dL (<2.0) 02/25/22 05:40 Ur Leukocyte Esterase Negative (Negative) 02/25/22 05:40 Urine WBC (Auto) 2.0 /HPF (0.0-6.0) 02/25/22 05:40 Urine RBC (Auto) 1.0 /HPF (0.0-6.0) 02/25/22 05:40 Urine Bacteria (Auto) 1+ /HPF (Negative) 02/25/22 05:40 Urine Eosinophils None seen (None Seen) 02/25/22 05:40 Urine Creatinine 139.4 mg/dL (0.1-20.0) H 02/25/22 05:40 Urine Sodium 48 mmol/L 02/25/22 05:40 Salicylates < 0.3 mg/dL (2.8-20.0) L 02/24/22 12:57 Acetaminophen 5.0 ug/mL (10.0-30.0) L 02/24/22 12:57 Valproic Acid 15.9 ug/mL (50-100) L 02/24/22 12:57 Cap[place] 0.1 mmol/L (0.0-1.2) 02/24/22 12:57 Montiel/IV: Voiding Method Urinal Active Medications - Current Medications Current Medications: Generic Name Dose Route Start Last Admin Trade Name Freq PRN Reason Stop Dose Admin Acetaminophen 650 mg 02/24/22 15:18 Acetaminophen 325 Mg Tab PO Q4H PRN Pain MILD(1-3)/Fever >100.5/HURLEY Amiodarone HCl 900 mg/ 500 mls @ 33.333 mls/hr 02/24/22 15:00 02/25/22 10:29 Dextrose IV 1 mg/min DIRECT JUNIOR 33.333 mls/hr Administration Protocol 1 MG/MIN Sodium Bicarbonate 150 meq/ 1,150 mls @ 100 mls/hr 02/24/22 23:00 02/25/22 07:13 Sterile Water IV 100 mls/hr DIRECT JUNIOR Administration Amiodarone HCl 150 mg/ 100 mls @ 600 mls/hr 02/25/22 10:00 02/25/22 10:16 Dextrose IV 02/25/22 12:00 600 mls/hr ONCE@1000 JUNIOR Administration Morphine Sulfate 2 mg 02/24/22 15:18 Morphine 4 Mg/1 Ml Inj IV Q8H PRN Pain , Severe (7-10) Ondansetron HCl 4 mg 02/24/22 15:18 Ondansetron 4 Mg/2 Ml Inj IV Q8H PRN Nausea And Vomiting Oxycodone/Acetaminophen 1 tab 02/24/22 15:18 Oxycodone /Acetaminophen 5-325mg Tab PO Q12H PRN Pain, Moderate (4-6) Pantoprazole Sodium 40 mg 02/25/22 10:00 02/25/22 10:16 Pantoprazole 40 Mg Inj IV 40 mg QDAY JUNIOR Administration Polyethylene Glycol/Electrolytes 4,000 ml 02/25/22 18:00 Polyethylene Glycol/Elect Soln 4000 Ml PO 02/25/22 22:00 ONCE@1800 JUNIOR Sodium Chloride 10 ml 02/24/22 22:00 Sodium Chloride 0.9% 10 Ml Flush Syringe IV BID JUNIOR Sodium Chloride 10 ml 02/24/22 15:18 Sodium Chloride 0.9% 10 Ml Flush Syringe IV PRN PRN LINE FLUSH <LESLY DE LA O - Last Filed: 02/26/22 07:32> Assessment and Plan Assessment and plan: I saw and evaluated the patient. I agree with the findings and the plan of care as documented in the Nurse Practitioner's~note, with the following corrections and additions. Hospitalist Physical - Constitutional Vitals: Temp Pulse Resp BP Pulse Ox 99 F 99 H 18 81/60 99 02/26/22 04:00 02/26/22 04:00 02/26/22 04:00 02/25/22 02:30 02/26/22 04:00 Results - Labs CBC & Chem 7: 02/26/22 04:24 02/26/22 04:24 Labs: Laboratory Last Values WBC 7.8 K/mm3 (4.5-11.0) 02/26/22 04:24 RBC 3.47 M/mm3 (3.65-5.03) L 02/26/22 04:24 Hgb 10.6 gm/dl (11.8-15.2) L 02/26/22 04:24 Hct 31.8 % (35.5-45.6) L 02/26/22 04:24 MCV 92 fl (84-94) 02/26/22 04:24 MCH 31 pg (28-32) 02/26/22 04:24 MCHC 33 % (32-34) 02/26/22 04:24 RDW 14.4 % (13.2-15.2) 02/26/22 04:24 Plt Count 178 K/mm3 (140-440) 02/26/22 04:24 Lymph % (Auto) 32.5 % (13.4-35.0) 02/25/22 04:36 White % (Auto) 10.1 % (0.0-7.3) H 02/25/22 04:36 Eos % (Auto) 3.7 % (0.0-4.3) 02/25/22 04:36 Baso % (Auto) 0.9 % (0.0-1.8) 02/25/22 04:36 Lymph # (Auto) 1.8 K/mm3 (1.2-5.4) 02/25/22 04:36 White # (Auto) 0.6 K/mm3 (0.0-0.8) 02/25/22 04:36 Eos # (Auto) 0.2 K/mm3 (0.0-0.4) 02/25/22 04:36 Baso # (Auto) 0.0 K/mm3 (0.0-0.1) 02/25/22 04:36 Seg Neutrophils % 52.8 % (40.0-70.0) 02/25/22 04:36 Seg Neutrophils # 2.9 K/mm3 (1.8-7.7) 02/25/22 04:36 PT 14.7 Sec. (12.2-14.9) 02/24/22 12:57 INR 1.01 (0.87-1.13) 02/24/22 12:57 APTT 28.1 Sec. (24.2-36.6) 02/24/22 12:57 Sodium 137 mmol/L (137-145) 02/26/22 04:24 Potassium 3.7 mmol/L (3.6-5.0) 02/26/22 04:24 Chloride 91.8 mmol/L (98-107) L 02/26/22 04:24 Carbon Dioxide 26 mmol/L (22-30) 02/26/22 04:24 Anion Gap 23 mmol/L 02/26/22 04:24 BUN 18 mg/dL (9-20) 02/26/22 04:24 Creatinine 2.2 mg/dL (0.8-1.3) H 02/26/22 04:24 Estimated GFR 38 ml/min 02/26/22 04:24 BUN/Creatinine Ratio 8 % 02/26/22 04:24 Glucose 109 mg/dL (75-100) H 02/26/22 04:24 Osmolality 291 Mosm/kg 02/25/22 12:09 Calcium 8.7 mg/dL (8.4-10.2) 02/26/22 04:24 Phosphorus 1.70 mg/dL (2.5-4.5) L D 02/26/22 04:24 Magnesium 2.10 mg/dL (1.7-2.3) 02/26/22 04:24 Total Bilirubin 0.70 mg/dL (0.1-1.2) 02/26/22 04:24 Direct Bilirubin 0.4 mg/dL (0-0.2) H 02/26/22 04:24 Indirect Bilirubin 0.3 mg/dL 02/26/22 04:24 AST 236 units/L (5-40) H 02/26/22 04:24 ALT 163 units/L (7-56) H 02/26/22 04:24 Alkaline Phosphatase 157 units/L (35-129) H 02/26/22 04:24 Total Creatine Kinase 333 units/L (55-170) H 02/24/22 12:57 Total Protein 8.4 g/dL (6.3-8.2) H 02/26/22 04:24 Albumin 4.2 g/dL (3.9-5) 02/26/22 04:24 Albumin/Globulin Ratio 1.0 % 02/26/22 04:24 TSH 1.640 mlU/mL (0.270-4.200) 02/24/22 12:57 Urine Color Yellow (Yellow) 02/25/22 05:40 Urine Turbidity Clear (Clear) 02/25/22 05:40 Urine pH 5.0 (5.0-7.0) 02/25/22 05:40 Ur Specific [place] 1.015 (1.003-1.030) 02/25/22 05:40 Urine Protein <15 mg/dl mg/dL (Negative) 02/25/22 05:40 Urine Glucose (UA) Negative mg/dL (Negative) 02/25/22 05:40 Urine Ketones Negative mg/dL (Negative) 02/25/22 05:40 Urine Blood Trace (Negative) 02/25/22 05:40 Urine Nitrite Negative (Negative) 02/25/22 05:40 Ur Reducing Substances Not Reportable 02/25/22 05:40 Urine Bilirubin Negative (Negative) 02/25/22 05:40 Urine Ictotest Not Reportable 02/25/22 05:40 Urine Urobilinogen < 2.0 mg/dL (<2.0) 02/25/22 05:40 Ur Leukocyte Esterase Negative (Negative) 02/25/22 05:40 Urine WBC (Auto) 2.0 /HPF (0.0-6.0) 02/25/22 05:40 Urine RBC (Auto) 1.0 /HPF (0.0-6.0) 02/25/22 05:40 Urine Bacteria (Auto) 1+ /HPF (Negative) 02/25/22 05:40 Urine Eosinophils None seen (None Seen) 02/25/22 05:40 Urine Osmolality 232 Mosm/kg 02/25/22 11:16 Urine Creatinine 139.4 mg/dL (0.1-20.0) H 02/25/22 05:40 Urine Sodium 48 mmol/L 02/25/22 05:40 Salicylates < 0.3 mg/dL (2.8-20.0) L 02/24/22 12:57 Acetaminophen 5.0 ug/mL (10.0-30.0) L 02/24/22 12:57 Valproic Acid 15.9 ug/mL (50-100) L 02/24/22 12:57 [place] 0.1 mmol/L (0.0-1.2) 02/24/22 12:57 Montiel/IV: Voiding Method Urinal Active Medications - Current Medications Current Medications: Generic Name Dose Route Start Last Admin Trade Name Freq PRN Reason Stop Dose Admin Acetaminophen 650 mg 02/24/22 15:18 Acetaminophen 325 Mg Tab PO Q4H PRN Pain MILD(1-3)/Fever >100.5/HURLEY Amiodarone HCl 900 mg/ 500 mls @ 33.333 mls/hr 02/24/22 15:00 02/26/22 04:40 Dextrose IV 1 mg/min DIRECT JUNIOR 33.333 mls/hr Administration Protocol 1 MG/MIN Sodium Bicarbonate 150 meq/ 1,150 mls @ 100 mls/hr 02/24/22 23:00 02/26/22 06:48 Sterile Water IV 100 mls/hr DIRECT JUNIOR Administration Morphine Sulfate 2 mg 02/24/22 15:18 Morphine 4 Mg/1 Ml Inj IV Q8H PRN Pain , Severe (7-10) Ondansetron HCl 4 mg 02/24/22 15:18 Ondansetron 4 Mg/2 Ml Inj IV Q8H PRN Nausea And Vomiting Oxycodone/Acetaminophen 1 tab 02/24/22 15:18 Oxycodone /Acetaminophen 5-325mg Tab PO Q12H PRN Pain, Moderate (4-6) Pantoprazole Sodium 40 mg 02/25/22 10:00 02/25/22 10:16 Pantoprazole 40 Mg Inj IV 40 mg QDAY JUNIOR Administration Sodium Chloride 10 ml 02/24/22 22:00 02/25/22 21:56 Sodium Chloride 0.9% 10 Ml Flush Syringe IV 10 ml BID JUNIOR Administration Sodium Chloride 10 ml 02/24/22 15:18 Sodium Chloride 0.9% 10 Ml Flush Syringe IV PRN PRN LINE FLUSH
--- NOTE | 2022-02-25 11:56 | Progress Note ---
Assessment and Plan Patient is a 56 y/o old male with a past medical history of CKD, bipolar disorder, PAF who reports to the ED today after being sent by his aircraft [employer] office after being found in A. fib with RVR and being told he was dehydrated Afib with RVR CKD-nephrology consulted Bipolar disorder Hypomagnesemia Echo 02/24/2022-technically limited study due to poor endocardial definition. Grossly normal LV function approximately 55%. No pericardial effusion. Right ventricular systolic function is normal Plan: EKG shows A. fib with RVR 180 nonspecific T abnormalities. No acute ischemic changes. Patient denies any complaints of chest pain Telemetry reviewed patient remains in A. fib with RVR wiht episodes of NSTV will give another amiodarone bolus and continue amiodarone drip Will also give 500 cc IV fluid bolus Mg noted to be low will give magnesium sulfate 2gm IV. Check Mg in AM LFTs noted to be elevated. Will repeat LFTs in the a.m. due to patient currently on amiodarone Per documentation and conversation with staff GI reports patient has had history of life threatening bleeding ulcers and has plans for EGD/Colonoscopy . Will hold anticoagulation until cleared by GI Continue to closely monitor Patient seen in conjunction with Dr. Peña who agrees with this plan of care 30 minutes of critical care time spent in care coordination of patient - Patient Problems (1) Atrial fibrillation with RVR Current Visit: Yes Status: Acute (2) Renal insufficiency Current Visit: Yes Status: Acute (3) Hypomagnesemia Current Visit: Yes Status: Acute Subjective Date of service: 02/25/22 Principal diagnosis: A. fib with RVR, SHELLIE on CKD Interval history: Patient transferred to ICU. Patient resting in bed in no acute distress denies any complaints A. fib rate 150s however episodes into the 170s Objective Vital Signs Temp Pulse Pulse Resp BP BP Pulse Ox 02/25/22 11:12 100 02/25/22 08:44 154 H 02/25/22 08:00 97.8 F 154 H 16 100 02/25/22 05:33 160 H 16 100 02/25/22 02:30 159 H 15 81/60 98 02/25/22 02:15 137 H 15 87/65 97 02/25/22 02:00 139 H 19 102/70 99 02/25/22 01:46 151 H 16 98/74 94 02/25/22 01:30 162 H 10 L 88/67 100 02/25/22 01:15 160 H 8 L 90/71 100 02/25/22 01:00 158 H 7 L 97/70 100 02/25/22 00:46 158 H 12 88/61 98 02/25/22 00:30 159 H 14 81/60 99 02/25/22 00:15 150 H 15 92/74 98 02/25/22 00:00 164 H 14 97/73 02/24/22 23:46 144 H 11 L 88/66 99 02/24/22 23:30 147 H 12 98/63 99 02/24/22 23:22 157 H 88/57 02/24/22 23:15 133 H 14 88/66 02/24/22 23:00 152 H 16 92/67 100 02/24/22 22:46 165 H 19 99/56 98 02/24/22 22:30 141 H 18 88/69 100 02/24/22 22:19 158 H 02/24/22 22:15 143 H 15 94/74 98 02/24/22 22:00 151 H 17 96/64 99 02/24/22 21:45 176 H 18 98/56 98 02/24/22 21:30 140 H 22 102/74 97 02/24/22 21:15 155 H 12 100/62 99 02/24/22 21:00 148 H 19 96/67 97 02/24/22 20:45 146 H 17 102/64 98 02/24/22 20:30 157 H 17 102/73 99 02/24/22 20:15 170 H 14 97/65 98 02/24/22 20:00 152 H 14 90/68 97 02/24/22 19:45 161 H 19 88/66 98 02/24/22 19:30 157 H 20 86/65 100 02/24/22 19:15 176 H 14 88/67 99 02/24/22 19:00 149 H 20 83/68 97 02/24/22 18:45 151 H 12 92/66 100 02/24/22 18:42 139 H 14 89/64 100 02/24/22 18:30 162 H 22 89/64 99 02/24/22 18:15 166 H 17 86/64 98 02/24/22 18:00 163 H 22 99/66 99 02/24/22 17:45 177 H 12 92/69 100 02/24/22 17:30 146 H 10 L 92/69 99 02/24/22 17:15 180 H 13 90/68 99 02/24/22 17:00 182 H 19 93/62 98 02/24/22 16:45 166 H 15 96/66 100 02/24/22 16:30 177 H 11 L 87/60 99 02/24/22 16:15 179 H 9 L 99/69 100 02/24/22 16:00 155 H 27 H 103/70 97 02/24/22 15:45 191 H 19 99/61 98 02/24/22 15:30 155 H 8 L 93/72 100 02/24/22 15:15 145 H 14 93/72 100 02/24/22 15:00 147 H 18 99/72 92 02/24/22 14:46 155 H 16 97/61 100 02/24/22 14:30 172 H 15 102/70 99 02/24/22 14:16 153 H 20 91/70 99 02/24/22 14:00 171 H 11 L 86/62 99 02/24/22 13:45 151 H 9 L 99/60 100 02/24/22 13:30 167 H 15 94/58 99 02/24/22 13:17 160 H 14 110/65 100 02/24/22 13:15 158 H 16 110/65 02/24/22 13:06 181 H 94/58 02/24/22 13:00 187 H 17 94/68 02/24/22 12:45 169 H 12 94/68 96 02/24/22 12:30 184 H 25 H 97/66 99 02/24/22 12:15 207 H 14 97/65 100 02/24/22 12:11 185 H 18 - Physical Examination General: No Apparent Distress HEENT: Positive: PERRL Neck: Positive: trachea midline Cardiac: Positive: irregularly irregular, Tachycardia Lungs: Positive: Normal Breath Sounds Neuro: Positive: Grossly Intact Abdomen: Positive: Soft Skin: Negative: Rash, Suspicious Lesions, Ulceration Extremities: Present: upper extr. pulses. Absent: edema - Labs and Meds Cardiac Enzymes 02/24/22 02/25/22 Range/Units 12:57 04:36 AST 227 H 220 H (5-40) units/L Coagulation 02/24/22 Range/Units 12:57 PT 14.7 (12.2-14.9) Sec. INR 1.01 (0.87-1.13) APTT 28.1 (24.2-36.6) Sec. CBC 02/24/22 02/25/22 Range/Units 12:57 04:36 WBC 6.7 5.5 (4.5-11.0) K/mm3 RBC 3.63 L 3.66 (3.65-5.03) M/mm3 Hgb 11.0 L 11.1 L (11.8-15.2) gm/dl Hct 33.5 L 33.4 L (35.5-45.6) % Plt Count 169 151 (140-440) K/mm3 Lymph # (Auto) 1.9 1.8 (1.2-5.4) K/mm3 [place] # (Auto) 0.8 0.6 (0.0-0.8) K/mm3 Eos # (Auto) 0.2 0.2 (0.0-0.4) K/mm3 Baso # (Auto) 0.2 H 0.0 (0.0-0.1) K/mm3 Comprehensive Metabolic Panel 02/24/22 02/25/22 Range/Units 12:57 04:36 Sodium 135 L 134 L (137-145) mmol/L Potassium 4.1 3.9 (3.6-5.0) mmol/L Chloride 97.7 L 93.7 L (98-107) mmol/L Carbon Dioxide 16 L 21 L (22-30) mmol/L BUN 28 H 27 H (9-20) mg/dL Creatinine 5.0 H 3.1 H (0.8-1.3) mg/dL Glucose 114 H 117 H (75-100) mg/dL Calcium 8.5 8.0 L (8.4-10.2) mg/dL Direct Bilirubin 0.5 H (0-0.2) mg/dL Indirect Bilirubin 0.4 mg/dL AST 227 H 220 H (5-40) units/L ALT 124 H 130 H (7-56) units/L Alkaline Phosphatase 170 H 158 H (35-129) units/L Total Protein 8.1 7.5 (6.3-8.2) g/dL Albumin 4.6 3.9 (3.9-5) g/dL - Imaging and Cardiology Echo: report reviewed - Telemetry EKG Rhythm: Atrial Fibrillation - EKG Supraventricular dysrhythmia: atrial fibrillation Repolarization changes or abnormalities: nonspecific abnormality, ST segment, and/or T wave
[2022-02-25] MEDS ORDERED: MAGNESIUM SULFATE 2 GM/50 ML BAG IV SCH (14:30)
[2022-02-25] MEDS ORDERED: MAGNESIUM SULFATE 2 GM/50 ML BAG IV ONE (16:54)
[2022-02-25] MEDS ORDERED: SODIUM CHLORIDE 0.9% 500 ML 500 ML IV SCH (17:00)
[2022-02-25] MEDS ORDERED: POLYETHYLENE GLYCOL/ELECT SOLN 4000 ML PO SCH (18:00)
[2022-02-25 20:45] LABS: Calcium 8.8 mg/dL (8.4-10.2)
[2022-02-26] MEDS: AMIODARONE 900 MG in DEXTROSE 5% IN WATER 482 ML IV SCH ×2 (04:40→17:48)
[2022-02-26 06:23] LABS: Hematocrit 31.8 % (35.5-45.6); Hemoglobin 10.6 gm/dl (11.8-15.2); Mean Corpuscular HGB Conc 33 % (32-34); Mean Corpuscular Volume 92 fl (84-94); Platelet Count 178 K/mm3 (140-440); Red Blood Count 3.47 M/mm3 (3.65-5.03); Red Cell Distribution Width 14.4 % (13.2-15.2)
[2022-02-26 06:39] LABS: Albumin 4.2 g/dL (3.9-5); Bilirubin,Direct 0.4 mg/dL (0-0.2); Calcium 8.7 mg/dL (8.4-10.2)
[2022-02-26] MEDS: SODIUM BICARBONATE 150 MEQ in WATER FOR INJECTION (PF) 1,000 ML IV SCH (06:48)
--- NOTE | 2022-02-26 08:44 | Progress Note ---
Assessment and Plan 1. Acute kidney injury: Vasomotor SHELLIE in the setting of volume depletion / hypotension and A.Fib with RVR. Renal US negative for hydro. IV fluids. Monitor renal function. Creatinine level improving. Avoid nephrotoxic agents. Meds dosage based on GFR. 2. FEN: Anion-gap metabolic acidosis, improved, monitor. Replete lytes as needed. Monitor lytes and volume status. 3. A.fib with RVR: Amio drip. SR at the time eval. Followed by Cards. Monitor. 4. Hypotension: Likely 2/2 volume depletion. Continue IV fluids. Monitor. 5. Cirrhosis, POA: Followed by GI. EGD & Colonoscopy today. Monitor. 6. Bipolar Disorder // ETOH Abuse: Monitor for withdrawal. CIWA protocol as appropriate. 7. Normocytic Anemia, POA: Trend. Subjective: Patient was seen and examined at the bedside. Doing ok. Examination: General appearance: well-developed, appears stated age, no distress HEENT: atraumatic, CARLITOS Neck: trachea midline Respiratory: ctab Heart: S1S2, regular, no murmur Abdomen: soft, bowel sounds heard, NT Integumentary: no obvious rash Neurologic: AO, able to move extremities Ext: no edema Subjective Date of service: 02/26/22 Principal diagnosis: A. fib with RVR, SHELLIE on CKD Objective - Vital Signs Vital signs: Vital Signs - 12hr 02/25/22 02/26/22 02/26/22 21:22 00:00 04:00 Temperature 99.3 F 99 F Pulse Rate 85 103 H Pulse Rate [ 134 H 99 H From Monitor] Respiratory 18 18 Rate O2 Sat by Pulse 100 99 99 Oximetry 02/26/22 02/26/22 08:00 08:31 Temperature Pulse Rate 75 Pulse Rate [ From Monitor] Respiratory Rate O2 Sat by Pulse 96 Oximetry - Lab 02/26/22 13:38 02/26/22 13:38 Most recent lab results Calcium 8.7 mg/dL (8.4-10.2) 02/26/22 04:24 Phosphorus 1.70 mg/dL (2.5-4.5) L D 02/26/22 04:24 Magnesium 2.10 mg/dL (1.7-2.3) 02/26/22 04:24 Urine Creatinine 139.4 mg/dL (0.1-20.0) H 02/25/22 05:40 Urine Sodium 48 mmol/L 02/25/22 05:40 Medications & Allergies - Medications Allergies/Adverse Reactions: Allergies No Known Allergies Allergy (Unverified 02/24/22 13:06) Home Medications: Home Medications Medication Instructions Recorded Confirmed Last Taken Type ALPRAZolam [Xanax TAB] 0.5 mg PO HS 02/25/22 02/25/22 Unknown History Mirtazapine [Remeron] 15 mg PO HS 02/25/22 02/25/22 Unknown History QUEtiapine [SEROquel] 400 mg PO HS 02/25/22 02/25/22 Unknown History Valsartan/Hydrochlorothiazide 1 each PO DAILY 02/25/22 02/25/22 Unknown History [Valsartan-Hctz 160-25 mg Tab] amLODIPine [Norvasc] 10 mg PO DAILY 02/25/22 02/25/22 Unknown History clonazePAM [Klonopin] 1 mg PO HS 02/25/22 02/25/22 Unknown History lamoTRIgine [LaMICtal] 25 mg PO DAILY 02/25/22 02/25/22 Unknown History Active Medications: Generic Name Dose Route Start Last Admin Trade Name Freq PRN Reason Stop Dose Admin Acetaminophen 650 mg 02/24/22 15:18 Acetaminophen 325 Mg Tab PO Q4H PRN Pain MILD(1-3)/Fever >100.5/HURLEY Amiodarone HCl 900 mg/ 500 mls @ 33.333 mls/hr 02/24/22 15:00 02/26/22 04:40 Dextrose IV 1 mg/min DIRECT JUNIOR 33.333 mls/hr Administration Protocol 1 MG/MIN Sodium Bicarbonate 150 meq/ 1,150 mls @ 100 mls/hr 02/24/22 23:00 02/26/22 06:48 Sterile Water IV 100 mls/hr DIRECT JUNIOR Administration Potassium Phosphate 30 mmol/ 510 mls @ 83 mls/hr 02/26/22 09:00 Sodium Chloride IV 02/26/22 15:08 ONCE ONE Morphine Sulfate 2 mg 02/24/22 15:18 Morphine 4 Mg/1 Ml Inj IV Q8H PRN Pain , Severe (7-10) Ondansetron HCl 4 mg 02/24/22 15:18 Ondansetron 4 Mg/2 Ml Inj IV Q8H PRN Nausea And Vomiting Oxycodone/Acetaminophen 1 tab 02/24/22 15:18 Oxycodone /Acetaminophen 5-325mg Tab PO Q12H PRN Pain, Moderate (4-6) Pantoprazole Sodium 40 mg 02/25/22 10:00 02/25/22 10:16 Pantoprazole 40 Mg Inj IV 40 mg QDAY JUNIOR Administration Sodium Chloride 10 ml 02/24/22 22:00 02/25/22 21:56 Sodium Chloride 0.9% 10 Ml Flush Syringe IV 10 ml BID JUNIOR Administration Sodium Chloride 10 ml 02/24/22 15:18 Sodium Chloride 0.9% 10 Ml Flush Syringe IV PRN PRN LINE FLUSH
[2022-02-26] MEDS ORDERED: POTASSIUM PHOSPHATE 30 MMOL in SODIUM CHLORIDE 0.9% 500 ML 500 ML IV ONE (09:00)
[2022-02-26] MEDS: PANTOPRAZOLE 40 MG INJ IV SCH (09:04)
[2022-02-26] MEDS ORDERED: propofoL 200 MG/20 ML VIAL IV ONE ×3 (09:17→09:56)
--- NOTE | 2022-02-26 09:30 | Operative Report ---
Operative Report Operative Report: DOS: 02/26/22 SURGEON: Lyndon Slaughter MD EGD with biopsy REPORT PREOPERATIVE DIAGNOSIS and POSTOPERATIVE DIAGNOSIS: History peptic ulcer disease, need for assisted anticoagulation ESTIMATED BLOOD LOSS: minimal DESCRIPTION OF PROCEDURE: A high-resolution EGD scope was passed through the oropharynx, esophagus, stomach, and second portion of duodenum. The scope was carefully withdrawn. Retroflexion was performed in the stomach. At the end of the procedure, the scope was cleaned using normal technique. Vital signs monitored continuously throughout. SEDATION: Provided by Anesthesiology Services. COMPLICATIONS: None. FINDINGS: * Normal second portion of the duodenum * Mild duodenitis of the duodenal bulb with localized areas of erythema * Mild to moderate gastritis of the gastric antrum and body with erythema and mild nodularity. Biopsies were taken to rule out H. Pylori infection. A total of 5 biopsies were taken, 2 from the antrum, 1 from the incisura, 2 from the body. * No gastric ulcers * No duodenal ulcers * No gastric varices * No esophageal varices * Z-line irregular 41 cm from incisors * 1 cm hiatal hernia room * Remainder of exam unremarkable RECOMMENDATIONS: Negative colonoscopy and EGD for high risk lesions therefore from GI standpoint patient may be started on long-term anticoagulation I merely recommend having the patient be on pantoprazole 40 mg daily or equivalent proton pump inhibitor He should follow-up with us in the office to review biopsy results and manage his liver disease GI will sign off please call us back if we can be of any further assistance
--- NOTE | 2022-02-26 09:30 | Operative Report ---
Operative Report Operative Report: DOS: 02/26/22 SURGEON: Lyndon Slaughter MD COLONOSCOPY REPORT PREOPERATIVE AND POSTOPERATIVE DIAGNOSIS: screening colonoscopy, need for long term care phlebotomist anticoagulation DESCRIPTION OF PROCEDURE: The colonoscope was passed to the terminal ileum as identified by the ileal tissue. Scope was carefully withdrawn. Retroflexion was performed in the rectum. At the end of procedure, the scope was cleaned using normal technique. Vital signs monitored continuously throughout. SEDATION: Provided by Anesthesiology Services. Quality of the prep was adequate. COMPLICATIONS: None. ESTIMATED BLOOD LOSS: none FINDINGS: * Few scattered diverticula in the colon * Normal terminal ileum * Small nonbleeding internal hemorrhoids * Remainder of exam unremarkable RECOMMENDATIONS: Negative colonoscopy and EGD for high risk lesions therefore from GI standpoint patient may be started on long-term anticoagulation I mayitorily recommend having the patient be on pantoprazole 40 mg daily or equivalent proton pump inhibitor He should follow-up with us in the office to review biopsy results and manage his liver disease GI will sign off please call us back if we can be of any further assistance
--- NOTE | 2022-02-26 09:35 | Anesthesia Consultation ---
Anesthesia Consult and Med Hx Date of service: 02/26/22 - Airway Anesthetic Teeth Evaluation: Poor, Crowns (upper front #8,9) ROM Head & Neck: Adequate Mental/Hyoid Distance: Adequate Mallampati Class: Class II Intubation Access Assessment: Probably Good - Pre-Operative Health Status ASA Pre-Surgery Classification: ASA3 Proposed Anesthetic Plan: MAC - Pulmonary Hx Smoking: Yes (former smoker) Hx Asthma: No COPD: No Hx Pneumonia: No - Cardiovascular System Hx Hypertension: Yes Hx Cardia Arrhythmia: Yes (a-fib with RVR, on amiodorone drip) - Central Nervous System Hx Psychiatric Problems: Yes (bipolar) - Gastrointestinal Hx Ulcer: Yes - Endocrine Hx Renal Disease: Yes (SHELLIE) Hx End Stage Renal Disease: No Hx Cirrhosis: Yes (alcoholic nature) Hx Liver Disease: Yes - Hematic Hx Anemia: Yes - Other Systems Hx Alcohol Use: Yes (4 shots/day, stopped drinking 2 weeks ago) - Additional Comments Anesthesia Medical History Comments: patient is ICU, on amiodorone drip, requires endoscopic study for anticoagulation treatment
--- NOTE | 2022-02-26 09:42 | Anesthesia Day of Surgery ---
Anesthesia Day of Surgery - Day of Surgery Patient Examined: Yes Patient H&P Reviewed: Yes Patient is NPO: Yes
[2022-02-26] MEDS ORDERED: ePHEDrine SULFATE 50 MG/1 ML INJ ONE (10:12)
--- NOTE | 2022-02-26 10:31 | Progress Note ---
Assessment and Plan Atrial fibrillation with RVR Liver Cirrhosis Elevated liver function tests Acute kidney injury (SHELLIE) Metabolic acidosis Bipolar disorder - follow EGD report - continue Amiodarone drip - continue accuchecks with glycemic control per SSI (While critically ill target blood glucose of 140-180 mg/dL; avoid hypoglycemia) - prn supplemental oxygen for target O2 sat's > 90% acutely - aspiration - prn bronchodilators with pulmonary hygiene per RT - avoid nephrotoxins, renally dose all medications - AB's per ID rec's - prn analgesia per pain score - Maintenance of sleep-wake cycle, avoid delirium - G.I. & VTE prophylaxis - PT/OT/ROM exercises - mobility protocols for pressure ulcer prophylaxis - Monitor hemodynamics closely - continue other care per attending / other consultants - discharge planning ongoing concurrently .... Re-evaluate in am & prn CONDITION: CRITICAL PROGNOSIS: GUARDED CODE STATUS: FULL CODE The high probability of a clinically significant, sudden or life-threatening deterioration of the [respiratory, cardiovascular, GI & neurologic] system(s) required my full and direct attention, intervention and personal management. The aggregate critical care time was [33] minutes without overlap. Time includes spent on; [x] Data Review and interpretation [x] Patient assessment and monitoring of vital signs [x] Documentation [x] Medication orders and management Subjective Date of service: 02/26/22 Principal diagnosis: A-Fib with RVR; Liver Cirrhosis; Elevated LFT's; SHELLIE on CKD; Met. Acidosis Interval history: Patient is seen today for: Atrial fibrillation with RVR; Liver Cirrhosis; Elevated LFT's; SHELLIE; Metabolic acidosis; Bipolar disorder Seen and examined at bedside; 24hour events reviewed; nursing and respiratory care staff consulted; no adverse overnight events reported to me; resting peacefully in bed; feels better; remains on Amiodarone drip; s/p upper & lower endoscopy; denies N/V/F/C Objective Vital Signs - 12hr 02/26/22 02/26/22 02/26/22 00:00 01:10 01:20 Temperature 99.3 F Pulse Rate 85 85 86 Pulse Rate [ 134 H From Monitor] Respiratory 18 11 L 13 Rate Blood Pressure 103/70 103/70 O2 Sat by Pulse 99 100 100 Oximetry 02/26/22 02/26/22 02/26/22 01:30 01:40 01:50 Temperature Pulse Rate 83 87 84 Pulse Rate [ From Monitor] Respiratory 11 L 8 L 8 L Rate Blood Pressure 100/68 100/68 100/68 O2 Sat by Pulse 97 100 100 Oximetry 02/26/22 02/26/22 02/26/22 02:00 02:10 02:20 Temperature Pulse Rate 77 84 93 H Pulse Rate [ From Monitor] Respiratory 9 L 13 12 Rate Blood Pressure 106/74 100/68 100/68 O2 Sat by Pulse 100 100 99 Oximetry 02/26/22 02/26/22 02/26/22 02:30 02:40 02:50 Temperature Pulse Rate 84 80 76 Pulse Rate [ From Monitor] Respiratory 17 11 L 11 L Rate Blood Pressure 116/72 106/74 106/74 O2 Sat by Pulse 95 99 100 Oximetry 02/26/22 02/26/22 02/26/22 03:00 03:10 03:20 Temperature Pulse Rate 93 H 80 93 H Pulse Rate [ From Monitor] Respiratory 14 11 L 17 Rate Blood Pressure 102/67 102/67 102/67 O2 Sat by Pulse 96 98 98 Oximetry 02/26/22 02/26/22 02/26/22 03:30 03:40 03:50 Temperature Pulse Rate 82 81 95 H Pulse Rate [ From Monitor] Respiratory 15 14 20 Rate Blood Pressure 97/72 97/72 97/72 O2 Sat by Pulse 97 100 95 Oximetry 02/26/22 02/26/22 02/26/22 04:00 04:10 04:20 Temperature 99 F Pulse Rate 77 98 H 81 Pulse Rate [ 99 H From Monitor] Respiratory 10 L 20 10 L Rate Blood Pressure 101/69 101/69 101/69 O2 Sat by Pulse 98 97 100 Oximetry 02/26/22 02/26/22 02/26/22 04:30 04:40 04:50 Temperature Pulse Rate 94 H 76 78 Pulse Rate [ From Monitor] Respiratory 17 11 L 11 L Rate Blood Pressure 101/69 101/69 101/69 O2 Sat by Pulse 100 99 Oximetry 02/26/22 02/26/22 02/26/22 05:00 05:10 05:20 Temperature Pulse Rate 80 77 77 Pulse Rate [ From Monitor] Respiratory 12 9 L 10 L Rate Blood Pressure 99/67 99/67 99/67 O2 Sat by Pulse 100 99 100 Oximetry 02/26/22 02/26/22 02/26/22 05:30 05:40 05:50 Temperature Pulse Rate 79 79 96 H Pulse Rate [ From Monitor] Respiratory 10 L 12 19 Rate Blood Pressure 103/66 99/67 99/67 O2 Sat by Pulse 100 99 99 Oximetry 02/26/22 02/26/22 02/26/22 06:00 06:10 06:20 Temperature Pulse Rate 88 80 77 Pulse Rate [ From Monitor] Respiratory 18 9 L 20 Rate Blood Pressure 104/73 103/66 103/66 O2 Sat by Pulse 99 100 99 Oximetry 02/26/22 02/26/22 02/26/22 06:30 06:40 06:50 Temperature Pulse Rate 80 75 76 Pulse Rate [ From Monitor] Respiratory 14 13 9 L Rate Blood Pressure 103/66 104/73 106/71 O2 Sat by Pulse 98 99 100 Oximetry 02/26/22 02/26/22 02/26/22 07:00 07:10 07:20 Temperature Pulse Rate 77 74 85 Pulse Rate [ From Monitor] Respiratory 10 L 13 19 Rate Blood Pressure 108/71 106/71 106/71 O2 Sat by Pulse 100 90 Oximetry 02/26/22 02/26/22 02/26/22 07:30 07:40 07:50 Temperature Pulse Rate 72 93 H 74 Pulse Rate [ From Monitor] Respiratory 13 17 10 L Rate Blood Pressure 107/71 107/71 108/71 O2 Sat by Pulse 99 100 100 Oximetry 02/26/22 02/26/22 02/26/22 08:00 08:10 08:20 Temperature Pulse Rate 70 74 68 Pulse Rate [ 75 From Monitor] Respiratory 10 L 13 10 L Rate Blood Pressure 106/69 106/69 106/69 O2 Sat by Pulse 100 95 93 Oximetry 02/26/22 02/26/22 02/26/22 08:30 08:31 08:40 Temperature Pulse Rate 72 70 Pulse Rate [ From Monitor] Respiratory 14 17 Rate Blood Pressure 99/68 99/68 O2 Sat by Pulse 92 96 95 Oximetry 02/26/22 02/26/22 02/26/22 08:50 09:00 09:10 Temperature Pulse Rate 74 67 78 Pulse Rate [ From Monitor] Respiratory 16 14 13 Rate Blood Pressure 99/68 99/68 112/68 O2 Sat by Pulse 92 96 100 Oximetry 02/26/22 02/26/22 02/26/22 09:20 09:30 09:40 Temperature Pulse Rate 94 H 80 78 Pulse Rate [ From Monitor] Respiratory 18 10 L 19 Rate Blood Pressure 112/68 110/76 110/76 O2 Sat by Pulse 100 99 97 Oximetry 02/26/22 02/26/22 02/26/22 09:50 10:00 10:10 Temperature Pulse Rate 86 88 82 Pulse Rate [ From Monitor] Respiratory 17 23 19 Rate Blood Pressure 112/68 112/68 69/39 O2 Sat by Pulse 100 100 99 Oximetry 02/26/22 10:20 Temperature Pulse Rate 86 Pulse Rate [ From Monitor] Respiratory 21 Rate Blood Pressure 102/75 O2 Sat by Pulse 100 Oximetry Constitutional: no acute distress Eyes: non-icteric ENT: oropharynx moist Neck: supple, no lymphadenopathy, no JVD Effort: normal Ascultation: Bilateral: clear Percussion: Bilateral: not dull Cardiovascular: regular rate and rhythm Gastrointestinal: normoactive bowel sounds, soft, non-tender, non-distended (protuberant) Integumentary: normal Extremities: no cyanosis, no edema, pulses normal, no ischemia or petechiae Neurologic: normal mental status, non-focal exam (grossly), pupils equal and round, motor strength normal and Psychiatric: mood appropriate, affect normal CBC and BMP: 02/26/22 04:24 02/26/22 04:24 ABG, PT/INR, D-dimer: PT/INR, D-dimer PT 14.6 Sec. (12.2-14.9) 02/26/22 09:34 INR 1.00 (0.87-1.13) 02/26/22 09:34 Abnormal lab findings: Abnormal Labs 02/24/22 02/24/22 02/24/22 12:57 12:57 12:57 RBC 3.63 L Hgb 11.0 L Hct 33.5 L [place] % (Auto) 12.5 H Baso % (Auto) 2.4 H Baso # (Auto) 0.2 H Sodium 135 L Chloride 97.7 L Carbon Dioxide 16 L BUN 28 H Creatinine 5.0 H Glucose 114 H Calcium Phosphorus Magnesium 1.50 L Direct Bilirubin AST 227 H ALT 124 H Alkaline Phosphatase 170 H Total Creatine Kinase 333 H Total Protein Urine Creatinine Salicylates < 0.3 L Acetaminophen Valproic Acid 15.9 L 02/24/22 02/25/22 02/25/22 12:57 04:36 04:36 RBC Hgb 11.1 L Hct 33.4 L [place] % (Auto) 10.1 H Baso % (Auto) Baso # (Auto) Sodium 134 L Chloride 93.7 L Carbon Dioxide 21 L BUN 27 H Creatinine 3.1 H Glucose 117 H Calcium 8.0 L Phosphorus Magnesium Direct Bilirubin 0.5 H AST 220 H ALT 130 H Alkaline Phosphatase 158 H Total Creatine Kinase Total Protein Urine Creatinine Salicylates Acetaminophen 5.0 L Valproic Acid 02/25/22 02/25/22 02/25/22 05:40 12:09 20:17 RBC Hgb Hct [place] % (Auto) Baso % (Auto) Baso # (Auto) Sodium 134 L Chloride 93.6 L Carbon Dioxide BUN Creatinine 2.3 H Glucose 129 H Calcium Phosphorus Magnesium 1.40 L 2.50 H Direct Bilirubin AST ALT Alkaline Phosphatase Total Creatine Kinase Total Protein Urine Creatinine 139.4 H Salicylates Acetaminophen Valproic Acid 02/26/22 02/26/22 04:24 04:24 RBC 3.47 L Hgb 10.6 L Hct 31.8 L [place] % (Auto) Baso % (Auto) Baso # (Auto) Sodium Chloride 91.8 L Carbon Dioxide BUN Creatinine 2.2 H Glucose 109 H Calcium Phosphorus 1.70 L D Magnesium Direct Bilirubin 0.4 H AST 236 H ALT 163 H Alkaline Phosphatase 157 H Total Creatine Kinase Total Protein 8.4 H Urine Creatinine Salicylates Acetaminophen Valproic Acid Allied health notes reviewed: nursing
--- NOTE | 2022-02-26 12:13 | Progress Note ---
<FRANNY TERESA - Last Filed: 02/26/22 17:07> Assessment and Plan Assessment and plan: This is a 56-year-old male with known past medical history of HTN, Bipolar disorder, kidney disease, and paroxysmal Afib currently not on any coagulation admitted for Afib with RVR and acute on chronic SHELLIE Hospital Course to Date: 02/25: Remains in Afib with RVR on Amiodarone gtt, BP marginal. Plan for addit ional Amio bolus and IVF bolus per Cardio. Continue Amio gtt, not a candiate for BB at this time due to low BP. Plan for EGD in the am per GI, continue to hold AC and trend LFTs. Medical records requested from patient's PCP. Renal function improved this am, continue bcarb gtt per Nephrology. 02/26: Converted to SR this am, remains on Amio gtt per Cardio. S/p EGD/Colonoscopy today by GI, revealed mild to moderate gastritis and scattered diverticula. GI recommendations noted. D/w Cardio, plan to initiate PO Eliquis today. Renal function continue to improve, continue IVF hydration per nephro. Okay to transfer to Telemetry this afternoon if patient remains stable. Assessment and Plan #Atrial Fibrillation with RVR #Hypotension - Presented from Neurologist's office due to tachycardia and hypotension - EKG revealed Afib with RVR, HR in the 180s - Amiodarone gtt was initiated - Cardiology consulted, appreciated recommendations - 2D echo noted, LVEF approximately 55%. See report for detail - Converted to SR this am, remains on amio gtt per Cardio. 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 See report for detail - GI recommendations appreciated - Continue to trend LFTs - Follow up with GI outpatient for biopsy result and management of cirrhosis - ETOH cessation education provided. Patient verbalized understanding and agreed with info provided #Acute on Chronic Kidney Injury - Sent from Neurologist's office. 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 of 5.0, renal function continue to improve - s/p Bcarb gtt. - Nephrology on consult, appreciated recommendation - Continue gentle IVF hydration per Nephro - Strict intake and output - Avoid nephrotoxic medications; Renally dose medications - Monitor and replace electrolytes as needed #Bipolar Disorder #ETOH Abuse - Continue medical management, no acute exacerbation at this time - Resume home meds once list is available - Daily ETOH abuse, monitor for s/s of withdrawal - CIWA protocol if with s/s of ETOH withdrawal - ETOH cessation education provided. Patient verbalized understanding and agreed with info provided #GI/DVT Prophylaxis - PPI- Protonix - Eliquis initiated - SCD to bilateral ultimately while in bed #Advance Care Planning - Disease education data, care plan, diagnoses, and prognosis were discussed with patient at the bedside. Patient is a FULL code. Patient acknowledged understanding and agreed with current care plan. The high probability of a clinically significant, sudden or life threatening deterioration of the [multiple] system(s) required my full and direct attention, intervention and personal management. The aggregate critical care time was [60] minutes. This time is in addition to time spent performing reported procedures but includes the following: [x] Data Review and interpretation [x] Patient assessment and monitoring of vital signs [x] Documentation [x] Medication orders and management Disposition Plan: ICU Total Time Spent with Patient (Minutes): 60 History Interval history: Patient seen and examined at the bedside. Remains stable on RA, denied any pain nor any discomfort at this time. Converted to SR this am, remains on Amiodarone gtt per cardio. S/p EGD and colonoscopy at the bedside by GIVSS. LOPEZ overnight Hospitalist Physical - Physical exam Narrative exam: General appearance: Present: no acute distress, well-nourished, obese - EENT Eyes: Present: PERRL, EOM intact ENT: hearing intact - Neck Neck: Present: normal ROM - Respiratory Respiratory effort: normal Respiratory: bilateral: diminished - Cardiovascular Rhythm: irregularly irregular Heart Sounds: Present: S1 & S2 - Extremities Extremities: no ischemia, pulses intact, pulses symmetrical Extremity abnormal: edema - Peripheral Assessment Generalized Edema Type: Non-pitting Edema Degree: 1+ Capillary Refill: < 3 seconds Skin Temperature: Warm Peripheral Pulses: within normal limits - Abdominal General gastrointestinal: soft, non-distended, normal bowel sounds - Integumentary Integumentary: Present: clear, warm, dry - Psychiatric Psychiatric: appropriate mood/affect, cooperative - Neurologic Neurologic: CNII-XII intact, moves all extremities - Allied Health Allied health notes reviewed: nursing, case management - Constitutional Vitals: Temp Pulse Resp BP Pulse Ox 97.7 F 88 20 113/84 98 02/26/22 09:24 02/26/22 12:10 02/26/22 12:10 02/26/22 12:10 02/26/22 12:10 Results - Labs CBC & Chem 7: 02/26/22 04:24 02/26/22 04:24 Labs: Laboratory Last Values WBC 7.8 K/mm3 (4.5-11.0) 02/26/22 04:24 RBC 3.47 M/mm3 (3.65-5.03) L 02/26/22 04:24 Hgb 10.6 gm/dl (11.8-15.2) L 02/26/22 04:24 Hct 31.8 % (35.5-45.6) L 02/26/22 04:24 MCV 92 fl (84-94) 02/26/22 04:24 MCH 31 pg (28-32) 02/26/22 04:24 MCHC 33 % (32-34) 02/26/22 04:24 RDW 14.4 % (13.2-15.2) 02/26/22 04:24 Plt Count 178 K/mm3 (140-440) 02/26/22 04:24 Lymph % (Auto) 32.5 % (13.4-35.0) 02/25/22 04:36 [place] % (Auto) 10.1 % (0.0-7.3) H 02/25/22 04:36 Eos % (Auto) 3.7 % (0.0-4.3) 02/25/22 04:36 Baso % (Auto) 0.9 % (0.0-1.8) 02/25/22 04:36 Lymph # (Auto) 1.8 K/mm3 (1.2-5.4) 02/25/22 04:36 [place] # (Auto) 0.6 K/mm3 (0.0-0.8) 02/25/22 04:36 Eos # (Auto) 0.2 K/mm3 (0.0-0.4) 02/25/22 04:36 Baso # (Auto) 0.0 K/mm3 (0.0-0.1) 02/25/22 04:36 Seg Neutrophils % 52.8 % (40.0-70.0) 02/25/22 04:36 Seg Neutrophils # 2.9 K/mm3 (1.8-7.7) 02/25/22 04:36 PT 14.6 Sec. (12.2-14.9) 02/26/22 09:34 INR 1.00 (0.87-1.13) 02/26/22 09:34 APTT 28.1 Sec. (24.2-36.6) 02/24/22 12:57 Sodium 137 mmol/L (137-145) 02/26/22 04:24 Potassium 3.7 mmol/L (3.6-5.0) 02/26/22 04:24 Chloride 91.8 mmol/L (98-107) L 02/26/22 04:24 Carbon Dioxide 26 mmol/L (22-30) 02/26/22 04:24 Anion Gap 23 mmol/L 02/26/22 04:24 BUN 18 mg/dL (9-20) 02/26/22 04:24 Creatinine 2.2 mg/dL (0.8-1.3) H 02/26/22 04:24 Estimated GFR 38 ml/min 02/26/22 04:24 BUN/Creatinine Ratio 8 % 02/26/22 04:24 Glucose 109 mg/dL (75-100) H 02/26/22 04:24 Osmolality 291 Mosm/kg 02/25/22 12:09 Calcium 8.7 mg/dL (8.4-10.2) 02/26/22 04:24 Phosphorus 1.70 mg/dL (2.5-4.5) L D 02/26/22 04:24 Magnesium 2.10 mg/dL (1.7-2.3) 02/26/22 04:24 Total Bilirubin 0.70 mg/dL (0.1-1.2) 02/26/22 04:24 Direct Bilirubin 0.4 mg/dL (0-0.2) H 02/26/22 04:24 Indirect Bilirubin 0.3 mg/dL 02/26/22 04:24 AST 236 units/L (5-40) H 02/26/22 04:24 ALT 163 units/L (7-56) H 02/26/22 04:24 Alkaline Phosphatase 157 units/L (35-129) H 02/26/22 04:24 Total Creatine Kinase 333 units/L (55-170) H 02/24/22 12:57 Total Protein 8.4 g/dL (6.3-8.2) H 02/26/22 04:24 Albumin 4.2 g/dL (3.9-5) 02/26/22 04:24 Albumin/Globulin Ratio 1.0 % 02/26/22 04:24 TSH 1.640 mlU/mL (0.270-4.200) 02/24/22 12:57 Urine Color Yellow (Yellow) 02/25/22 05:40 Urine Turbidity Clear (Clear) 02/25/22 05:40 Urine pH 5.0 (5.0-7.0) 02/25/22 05:40 Ur Specific [place] 1.015 (1.003-1.030) 02/25/22 05:40 Urine Protein <15 mg/dl mg/dL (Negative) 02/25/22 05:40 Urine Glucose (UA) Negative mg/dL (Negative) 02/25/22 05:40 Urine Ketones Negative mg/dL (Negative) 02/25/22 05:40 Urine Blood Trace (Negative) 02/25/22 05:40 Urine Nitrite Negative (Negative) 02/25/22 05:40 Ur Reducing Substances Not Reportable 02/25/22 05:40 Urine Bilirubin Negative (Negative) 02/25/22 05:40 Urine Ictotest Not Reportable 02/25/22 05:40 Urine Urobilinogen < 2.0 mg/dL (<2.0) 02/25/22 05:40 Ur Leukocyte Esterase Negative (Negative) 02/25/22 05:40 Urine WBC (Auto) 2.0 /HPF (0.0-6.0) 02/25/22 05:40 Urine RBC (Auto) 1.0 /HPF (0.0-6.0) 02/25/22 05:40 Urine Bacteria (Auto) 1+ /HPF (Negative) 02/25/22 05:40 Urine Eosinophils None seen (None Seen) 02/25/22 05:40 Urine Osmolality 232 Mosm/kg 02/25/22 11:16 Urine Creatinine 139.4 mg/dL (0.1-20.0) H 02/25/22 05:40 Urine Sodium 48 mmol/L 02/25/22 05:40 Salicylates < 0.3 mg/dL (2.8-20.0) L 02/24/22 12:57 Acetaminophen 5.0 ug/mL (10.0-30.0) L 02/24/22 12:57 Valproic Acid 15.9 ug/mL (50-100) L 02/24/22 12:57 [place] 0.1 mmol/L (0.0-1.2) 02/24/22 12:57 Montiel/IV: Voiding Method Urinal Active Medications - Current Medications Current Medications: Generic Name Dose Route Start Last Admin Trade Name Freq PRN Reason Stop Dose Admin Acetaminophen 650 mg 02/24/22 15:18 Acetaminophen 325 Mg Tab PO Q4H PRN Pain MILD(1-3)/Fever >100.5/HURLEY Apixaban 5 mg 02/26/22 12:00 Apixaban 5 Mg Tab PO Q12HR JUNIOR Protocol Amiodarone HCl 900 mg/ 500 mls @ 33.333 mls/hr 02/24/22 15:00 02/26/22 04:40 Dextrose IV 1 mg/min DIRECT JUNIOR 33.333 mls/hr Administration Protocol 1 MG/MIN Potassium Phosphate 30 mmol/ 510 mls @ 83 mls/hr 02/26/22 09:00 02/26/22 09:04 Sodium Chloride IV 02/26/22 15:08 83 mls/hr ONCE ONE Administration Sodium Chloride 1,000 mls @ 100 mls/hr 02/26/22 11:15 Nacl 0.9% 1000 Ml IV DIRECT JUNIOR Morphine Sulfate 2 mg 02/24/22 15:18 Morphine 4 Mg/1 Ml Inj IV Q8H PRN Pain , Severe (7-10) Ondansetron HCl 4 mg 02/24/22 15:18 Ondansetron 4 Mg/2 Ml Inj IV Q8H PRN Nausea And Vomiting Oxycodone/Acetaminophen 1 tab 02/24/22 15:18 Oxycodone /Acetaminophen 5-325mg Tab PO Q12H PRN Pain, Moderate (4-6) Pantoprazole Sodium 40 mg 02/25/22 10:00 02/26/22 09:04 Pantoprazole 40 Mg Inj IV 40 mg QDAY JNUIOR Administration Sodium Chloride 10 ml 02/24/22 22:00 02/26/22 09:04 Sodium Chloride 0.9% 10 Ml Flush Syringe IV 10 ml BID JUNIOR Administration Sodium Chloride 10 ml 02/24/22 15:18 Sodium Chloride 0.9% 10 Ml Flush Syringe IV PRN PRN LINE FLUSH <LESLY DE LA O - Last Filed: 02/27/22 07:52> Assessment and Plan Assessment and plan: I saw and evaluated the patient. I agree with the findings and the plan of care as documented in the Nurse Practitioner's~note, with the following corrections and additions. Hospitalist Physical - Constitutional Vitals: Temp Pulse Resp BP Pulse Ox 98.3 F 85 12 103/73 94 02/27/22 03:27 02/27/22 03:27 02/27/22 03:27 02/27/22 03:27 02/27/22 03:27 Results - Labs CBC & Chem 7: 02/27/22 04:07 02/27/22 04:07 Labs: Laboratory Last Values WBC 6.5 K/mm3 (4.5-11.0) 02/27/22 04:07 RBC 3.03 M/mm3 (3.65-5.03) L 02/27/22 04:07 Hgb 9.2 gm/dl (11.8-15.2) L 02/27/22 04:07 Hct 28.1 % (35.5-45.6) L 02/27/22 04:07 MCV 93 fl (84-94) 02/27/22 04:07 MCH 30 pg (28-32) 02/27/22 04:07 MCHC 33 % (32-34) 02/27/22 04:07 RDW 15.0 % (13.2-15.2) 02/27/22 04:07 Plt Count 144 K/mm3 (140-440) 02/27/22 04:07 Lymph % (Auto) 32.5 % (13.4-35.0) 02/25/22 04:36 [place] % (Auto) 10.1 % (0.0-7.3) H 02/25/22 04:36 Eos % (Auto) 3.7 % (0.0-4.3) 02/25/22 04:36 Baso % (Auto) 0.9 % (0.0-1.8) 02/25/22 04:36 Lymph # (Auto) 1.8 K/mm3 (1.2-5.4) 02/25/22 04:36 [place] # (Auto) 0.6 K/mm3 (0.0-0.8) 02/25/22 04:36 Eos # (Auto) 0.2 K/mm3 (0.0-0.4) 02/25/22 04:36 Baso # (Auto) 0.0 K/mm3 (0.0-0.1) 02/25/22 04:36 Seg Neutrophils % 52.8 % (40.0-70.0) 02/25/22 04:36 Seg Neutrophils # 2.9 K/mm3 (1.8-7.7) 02/25/22 04:36 PT 31.1 Sec. (12.2-14.9) H 02/26/22 13:38 INR 2.52 (0.87-1.13) H 02/26/22 13:38 APTT 31.3 Sec. (24.2-36.6) 02/26/22 13:38 Sodium 137 mmol/L (137-145) 02/27/22 04:07 Potassium 3.5 mmol/L (3.6-5.0) L 02/27/22 04:07 Chloride 96.2 mmol/L (98-107) L 02/27/22 04:07 Carbon Dioxide 25 mmol/L (22-30) 02/27/22 04:07 Anion Gap 19 mmol/L 02/27/22 04:07 BUN 12 mg/dL (9-20) 02/27/22 04:07 Creatinine 1.8 mg/dL (0.8-1.3) H 02/27/22 04:07 Estimated GFR 47 ml/min 02/27/22 04:07 BUN/Creatinine Ratio 7 % 02/27/22 04:07 Glucose 106 mg/dL (75-100) H 02/27/22 04:07 Osmolality 291 Mosm/kg 02/25/22 12:09 Calcium 8.2 mg/dL (8.4-10.2) L 02/27/22 04:07 Phosphorus 3.40 mg/dL (2.5-4.5) D 02/27/22 04:07 Magnesium 1.60 mg/dL (1.7-2.3) L 02/27/22 04:07 Total Bilirubin 0.60 mg/dL (0.1-1.2) 02/27/22 04:07 Direct Bilirubin 0.3 mg/dL (0-0.2) H 02/27/22 04:07 Indirect Bilirubin 0.3 mg/dL 02/27/22 04:07 AST 136 units/L (5-40) H 02/27/22 04:07 ALT 124 units/L (7-56) H 02/27/22 04:07 Alkaline Phosphatase 132 units/L (35-129) H 02/27/22 04:07 Total Creatine Kinase 333 units/L (55-170) H 02/24/22 12:57 Total Protein 7.1 g/dL (6.3-8.2) 02/27/22 04:07 Albumin 3.6 g/dL (3.9-5) L 02/27/22 04:07 Albumin/Globulin Ratio 1.0 % 02/27/22 04:07 TSH 1.640 mlU/mL (0.270-4.200) 02/24/22 12:57 Urine Color Yellow (Yellow) 02/25/22 05:40 Urine Turbidity Clear (Clear) 02/25/22 05:40 Urine pH 5.0 (5.0-7.0) 02/25/22 05:40 Ur Specific [place] 1.015 (1.003-1.030) 02/25/22 05:40 Urine Protein <15 mg/dl mg/dL (Negative) 02/25/22 05:40 Urine Glucose (UA) Negative mg/dL (Negative) 02/25/22 05:40 Urine Ketones Negative mg/dL (Negative) 02/25/22 05:40 Urine Blood Trace (Negative) 02/25/22 05:40 Urine Nitrite Negative (Negative) 02/25/22 05:40 Ur Reducing Substances Not Reportable 02/25/22 05:40 Urine Bilirubin Negative (Negative) 02/25/22 05:40 Urine Ictotest Not Reportable 02/25/22 05:40 Urine Urobilinogen < 2.0 mg/dL (<2.0) 02/25/22 05:40 Ur Leukocyte Esterase Negative (Negative) 02/25/22 05:40 Urine WBC (Auto) 2.0 /HPF (0.0-6.0) 02/25/22 05:40 Urine RBC (Auto) 1.0 /HPF (0.0-6.0) 02/25/22 05:40 Urine Bacteria (Auto) 1+ /HPF (Negative) 02/25/22 05:40 Urine Eosinophils None seen (None Seen) 02/25/22 05:40 Urine Osmolality 232 Mosm/kg 02/25/22 11:16 Urine Creatinine 139.4 mg/dL (0.1-20.0) H 02/25/22 05:40 Urine Sodium 48 mmol/L 02/25/22 05:40 Salicylates < 0.3 mg/dL (2.8-20.0) L 02/24/22 12:57 Acetaminophen 5.0 ug/mL (10.0-30.0) L 02/24/22 12:57 Valproic Acid 15.9 ug/mL (50-100) L 02/24/22 12:57 [place] 0.1 mmol/L (0.0-1.2) 02/24/22 12:57 [place]/IV: Voiding Method Urinal Active Medications - Current Medications Current Medications: Generic Name Dose Route Start Last Admin Trade Name Freq PRN Reason Stop Dose Admin Acetaminophen 650 mg 02/24/22 15:18 Acetaminophen 325 Mg Tab PO Q4H PRN Pain MILD(1-3)/Fever >100.5/HURLEY Apixaban 5 mg 02/26/22 14:00 02/26/22 20:59 Apixaban 5 Mg Tab PO 5 mg Q12HR JUNIOR Administration Protocol Amiodarone HCl 900 mg/ 500 mls @ 33.333 mls/hr 02/24/22 15:00 02/26/22 17:48 Dextrose IV 1 mg/min DIRECT JUNIOR 33.333 mls/hr Administration Protocol 1 MG/MIN Sodium Chloride 1,000 mls @ 100 mls/hr 02/26/22 11:15 02/27/22 05:26 Nacl 0.9% 1000 Ml IV 100 mls/hr DIRECT JUNIOR Administration Morphine Sulfate 2 mg 02/24/22 15:18 Morphine 4 Mg/1 Ml Inj IV Q8H PRN Pain , Severe (7-10) Ondansetron HCl 4 mg 02/24/22 15:18 Ondansetron 4 Mg/2 Ml Inj IV Q8H PRN Nausea And Vomiting Oxycodone/Acetaminophen 1 tab 02/24/22 15:18 Oxycodone /Acetaminophen 5-325mg Tab PO Q12H PRN Pain, Moderate (4-6) Pantoprazole Sodium 40 mg 02/27/22 07:30 Pantoprazole 40 Mg Tab PO QDAC JUNIOR Sodium Chloride 10 ml 02/24/22 22:00 02/26/22 20:59 Sodium Chloride 0.9% 10 Ml Flush Syringe IV 10 ml BID JUNIOR Administration Sodium Chloride 10 ml 02/24/22 15:18 Sodium Chloride 0.9% 10 Ml Flush Syringe IV PRN PRN LINE FLUSH
--- NOTE | 2022-02-26 12:28 | Progress Note ---
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 fib with RVR and being told he was dehydrated Afib with RVR CKD-nephrology consulted Bipolar disorder Hypomagnesemia Echo 02/24/2022-technically limited study due to poor endocardial definition. Grossly normal LV function approximately 55%. No pericardial effusion. Right ventricular systolic function is normal Plan: Telemetry reviewed patient converted to sinus rhythm. Continue to closely monitor on telemetry to see if patient converts back to A. fib Will continue amiodarone drip at this time Patient remains hypotensive with SHELLIE will continue IV fluids with normal saline until tomorrow morning if okay with nephrology LFTs noted to be elevated. Will repeat LFTs in the a.m. due to patient currentl y on amiodarone Per documentation GI has cleared patient for anticoagulation will initiate anticoagulation with Eliquis Repeat echo pending to evaluate LV function Patient seen in conjunction with Dr. Peña who agrees with this plan of care 30 minutes of critical care time spent in care coordination of patient - Patient Problems (1) Atrial fibrillation with RVR Current Visit: Yes Status: Acute (2) Renal insufficiency Current Visit: Yes Status: Acute (3) Hypomagnesemia Current Visit: Yes Status: Acute Subjective Date of service: 02/26/22 Principal diagnosis: A-Fib with RVR; Liver Cirrhosis; Elevated LFT's; SHELLIE on CKD; Met. Acidosis Interval history: Patient for EGD and colonoscopy Patient converted to sinus rhythm overnight currently sinus 70s to 80s Objective Vital Signs Temp Pulse Pulse Resp BP Pulse Ox 02/26/22 12:10 88 20 113/84 98 02/26/22 12:00 77 19 104/71 96 02/26/22 11:50 79 10 L 111/68 97 02/26/22 11:40 83 22 107/74 02/26/22 11:30 74 12 105/75 95 02/26/22 11:20 79 12 108/75 100 02/26/22 11:10 77 16 109/73 02/26/22 11:00 76 10 L 107/73 98 02/26/22 10:50 74 10 L 103/69 96 02/26/22 10:40 82 19 107/73 95 02/26/22 10:30 85 19 113/68 97 02/26/22 10:20 86 21 102/75 100 02/26/22 10:10 82 19 69/39 99 02/26/22 10:00 88 23 112/68 100 02/26/22 09:50 86 17 112/68 100 02/26/22 09:40 78 19 110/76 97 02/26/22 09:30 80 10 L 110/76 99 02/26/22 09:24 97.7 F 83 22 107/74 95 02/26/22 09:20 94 H 18 112/68 100 02/26/22 09:10 78 13 112/68 100 02/26/22 09:00 67 14 99/68 96 02/26/22 08:50 74 16 99/68 92 02/26/22 08:40 70 17 99/68 95 02/26/22 08:31 96 02/26/22 08:30 72 14 99/68 92 02/26/22 08:20 68 10 L 106/69 93 02/26/22 08:10 74 13 106/69 95 02/26/22 08:00 70 75 10 L 106/69 100 02/26/22 07:50 74 10 L 108/71 100 02/26/22 07:40 93 H 17 107/71 100 02/26/22 07:30 72 13 107/71 99 02/26/22 07:20 85 19 106/71 90 02/26/22 07:10 74 13 106/71 100 02/26/22 07:00 77 10 L 108/71 02/26/22 06:50 76 9 L 106/71 100 02/26/22 06:40 75 13 104/73 99 02/26/22 06:30 80 14 103/66 98 02/26/22 06:20 77 20 103/66 99 02/26/22 06:10 80 9 L 103/66 100 02/26/22 06:00 88 18 104/73 99 02/26/22 05:50 96 H 19 99/67 99 02/26/22 05:40 79 12 99/67 99 02/26/22 05:30 79 10 L 103/66 100 02/26/22 05:20 77 10 L 99/67 100 02/26/22 05:10 77 9 L 99/67 99 02/26/22 05:00 80 12 99/67 100 02/26/22 04:50 78 11 L 101/69 99 02/26/22 04:40 76 11 L 101/69 100 02/26/22 04:30 94 H 17 101/69 02/26/22 04:20 81 10 L 101/69 100 02/26/22 04:10 98 H 20 101/69 97 02/26/22 04:00 99 F 77 99 H 10 L 101/69 98 02/26/22 03:50 95 H 20 97/72 95 02/26/22 03:40 81 14 97/72 100 02/26/22 03:30 82 15 97/72 97 02/26/22 03:20 93 H 17 102/67 98 02/26/22 03:10 80 11 L 102/67 98 02/26/22 03:00 93 H 14 102/67 96 02/26/22 02:50 76 11 L 106/74 100 02/26/22 02:40 80 11 L 106/74 99 02/26/22 02:30 84 17 116/72 95 02/26/22 02:20 93 H 12 100/68 99 02/26/22 02:10 84 13 100/68 100 02/26/22 02:00 77 9 L 106/74 100 02/26/22 01:50 84 8 L 100/68 100 02/26/22 01:40 87 8 L 100/68 100 02/26/22 01:30 83 11 L 100/68 97 02/26/22 01:20 86 13 103/70 100 02/26/22 01:10 85 11 L 103/70 100 02/26/22 00:00 99.3 F 85 134 H 18 99 02/25/22 21:22 100 02/25/22 20:00 98 F 134 H 134 H 18 99 02/25/22 16:00 156 H 138 H 16 99 - Physical Examination General: No Apparent Distress HEENT: Positive: PERRL Neck: Positive: trachea midline Cardiac: Positive: Reg Rate and Rhythm Lungs: Positive: Normal Breath Sounds Neuro: Positive: Grossly Intact Abdomen: Positive: Soft Skin: Negative: Rash, Suspicious Lesions, Ulceration Extremities: Present: upper extr. pulses. Absent: edema - Labs and Meds Cardiac Enzymes 02/26/22 Range/Units 04:24 AST 236 H (5-40) units/L Coagulation 02/26/22 Range/Units 09:34 PT 14.6 (12.2-14.9) Sec. INR 1.00 (0.87-1.13) CBC 02/26/22 Range/Units 04:24 WBC 7.8 (4.5-11.0) K/mm3 RBC 3.47 L (3.65-5.03) M/mm3 Hgb 10.6 L (11.8-15.2) gm/dl Hct 31.8 L (35.5-45.6) % Plt Count 178 (140-440) K/mm3 Comprehensive Metabolic Panel 02/25/22 02/26/22 Range/Units 20:17 04:24 Sodium 134 L 137 (137-145) mmol/L Potassium 4.1 3.7 (3.6-5.0) mmol/L Chloride 93.6 L 91.8 L (98-107) mmol/L Carbon Dioxide 24 26 (22-30) mmol/L BUN 19 18 (9-20) mg/dL Creatinine 2.3 H 2.2 H (0.8-1.3) mg/dL Glucose 129 H 109 H (75-100) mg/dL Calcium 8.8 8.7 (8.4-10.2) mg/dL Direct Bilirubin 0.4 H (0-0.2) mg/dL Indirect Bilirubin 0.3 mg/dL AST 236 H (5-40) units/L ALT 163 H (7-56) units/L Alkaline Phosphatase 157 H (35-129) units/L Total Protein 8.4 H (6.3-8.2) g/dL Albumin 4.2 (3.9-5) g/dL - Imaging and Cardiology Echo: report reviewed - Telemetry EKG Rhythm: Sinus Rhythm - EKG Sinus rhythms and dysrhythmias: sinus rhythm Repolarization changes or abnormalities: nonspecific abnormality, ST segment, and/or T wave
--- NOTE | 2022-02-26 13:20 | Post Anesthesia Evaluation ---
- Post Anesthesia Evaluation Patient Participated: Yes Airway Patent: Yes Stable Respiratory Function: Yes Nausea/Vomiting: No Temp > 96.8F: Yes Pain Manageable: Yes Adequeate Hydration: Yes Anesthesia Complications: No
[2022-02-26] MEDS: APIXABAN 5 MG TAB PO SCH ×2 (13:43→20:59)
[2022-02-26 14:45] LABS: Hemoglobin 10.3 gm/dl (11.8-15.2); Mean Corpuscular HGB Conc 34 % (32-34); Mean Corpuscular Volume 91 fl (84-94); Platelet Count 143 K/mm3 (140-440); Red Cell Distribution Width 14.8 % (13.2-15.2)
[2022-02-26 14:56] LABS: INR 2.52 (0.87-1.13); Partial Thromboplastin Time 31.3 Sec. (24.2-36.6)
--- NOTE | 2022-02-26 18:15 | Electrocardiograph Report ---
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
--- NOTE | 2022-02-26 18:20 | Electrocardiograph Report ---
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
[2022-02-26] MEDS: SODIUM CHLORIDE 0.9% 1000 ML 1,000 ML IV SCH (20:44)
[2022-02-27] MEDS: SODIUM CHLORIDE 0.9% 1000 ML 1,000 ML IV SCH (05:26)
[2022-02-27 05:41] LABS: Hematocrit 28.1 % (35.5-45.6); Hemoglobin 9.2 gm/dl (11.8-15.2); Mean Corpuscular HGB Conc 33 % (32-34); Mean Corpuscular Volume 93 fl (84-94); Platelet Count 144 K/mm3 (140-440); Red Blood Count 3.03 M/mm3 (3.65-5.03)
[2022-02-27 06:06] LABS: Albumin 3.6 g/dL (3.9-5); Bilirubin,Direct 0.3 mg/dL (0-0.2); Calcium 8.2 mg/dL (8.4-10.2)
[2022-02-27] MEDS ORDERED: POTASSIUM CHLORIDE ER 20 MEQ TAB PO NR (07:57)
--- NOTE | 2022-02-27 08:38 | Progress Note ---
Assessment and Plan 56 YO Male with HTN, Atrial Fib not currently taking therapeutic anticoagulation, Bipolar Disorder presents to ED for evaluation. Patient complained palpatations. 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 Upon arrival and during his evaluation the patient was found to have a heart rate in the 180s. Patient found to be in atrial fibrillation with RVR. Patient was instructed to seek [facility] Patient transported to [facility] via private vehicle for further care and evaluation of the aforementioned symptoms. The patient was seen and evaluated in the emergency department. Patient found to have atrial fibrillation with rapid ventricular response with a heart rate in the 180s, with ATN, metabolic acidosis, elevated liver function test. Patient admitted to telemetry due to increased risk of worsening symptoms and for medical stabilization. Patient initiated on amiodarone drip with eventual control of patient heart rate. Cardiology team consulted in ED. Nephrology team consulted in ED. Patient denies fever, chills, chest pain, palpitation, productive cough, skin rash, recent contact, or known exposure to COVID-19. GI team consulted in ED due to history of esophageal varices. Patient has history of cirrhosis of Liver and GERD. Patient has history esophageal varices binding. Also has history of back surgery. Patient has history of smoking 1 pack x 10 years. Stopped smoking 25 years ago. History of alcohol abuse. Denies drug abuse. 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 Patient . Has no children. No known drug allergies. Patient awake, weak. Resting on room air. O2 saturation 95%. No complaint of shortness of breath, Complaining burning in chest. Has some cough last night. No cough at this time. Patient afebrile. No leukocytosis, Blood pressure 83/48, MAP 65, Pulse 82, respirations 18. Continue Monitor blood pressure closely. Chest xray 02/24/22 reported no acute findings. Patient is on Apixaban, Protonix and Amiodarone. I spent critical care time of 45 minutes, talking to the patient, obtaining history, review the chart, Examine the patient,review chest xray, lab results, talking to the nursing staff and work up plan of treatment in this critically ill patient with atrial fibrillation, hypotension. - Patient Problems (1) Atrial fibrillation with RVR Current Visit: Yes Status: Acute Plan to address problem: Patient is on Apixaban. Management as per cardiology. (2) Hypotension Current Visit: Yes Status: Acute Plan to address problem: Blood pressure 83/48, MAP 65. Continue monitor blood pressure closely. Continue I/V fluids NSS. (3) Acute kidney injury (SHELLIE) with acute tubular necrosis (ATN) Current Visit: Yes Status: Acute Plan to address problem: Management as per nephrology. (4) Bipolar disorder Current Visit: Yes Status: Acute Plan to address problem: Management as per primary care. Consult psychiatry if needed. (5) Cirrhosis of liver Current Visit: Yes Status: Acute Plan to address problem: Management as per primary care and Gastroenterology. (6) History of gastric ulcer Current Visit: Yes Status: Acute Plan to address problem: Management as per primary care and gastroenterology. Subjective Date of service: 02/27/22 Principal diagnosis: A. fib with RVR, SHELLIE on CKD Interval history: 56 YO Male with HTN, Atrial Fib not currently taking therapeutic anticoagulatio n, Bipolar Disorder presents to ED for evaluation. Patient complained palpatations. 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 Upon arrival and during his evaluation the patient was found to have a heart rate in the 180s. Patient found to be in atrial fibrillation with RVR. Patient was instructed to seek further care at [facility]. Patient transported to [facility] via private vehicle for further care and evaluation of the aforementioned symptoms. The patient was seen and evaluated in the emergency department. Patient found to have atrial fibrillation with rapid ventricular response with a heart rate in the 180s, with ATN, metabolic acidosis, elevated liver function test. Patient admitted to telemetry due to increased risk of worsening symptoms and for medical stabilization. Patient initiated on amiodarone drip with eventual control of patient heart rate. Cardiology team consulted in ED. Nephrology team consulted in ED. Patient denies fever, chills, chest pain, palpitation, productive cough, skin rash, recent contact, or known exposure to COVID-19. GI team consulted in ED due to history of esophageal varices. Patient has history of cirrhosis of Liver and GERD. Patient has history esophageal varices binding. Also has history of back surgery. Patient has history of smoking 1 pack x 10 years. Stopped smoking 25 years ago. History of alcohol abuse. Denies drug abuse. 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 Has no children. No known drug allergies. Patient awake, weak. Resting on room air. O2 saturation 95%. No complaint of shortness of breath, Complaining burning in chest. Has some cough last night. No cough at this time. Patient afebrile. No leukocytosis, Blood pressure 83/48, MAP 65, Pulse 82, respirations 18. Continue Monitor blood pressure closely. Chest xray 02/24/22 reported no acute findings. Patient is on Apixaban, Protonix and Amiodarone. Objective Vital Signs - 12hr 02/26/22 02/26/22 02/26/22 20:41 20:51 22:58 Temperature 97.8 F Pulse Rate 76 82 80 Respiratory 11 L 14 19 Rate Blood Pressure 111/77 111/77 108/71 O2 Sat by Pulse 100 100 97 Oximetry 02/27/22 02/27/22 02/27/22 00:00 03:27 08:21 Temperature 98.3 F 98.0 F Pulse Rate 85 86 Respiratory 20 12 18 Rate Blood Pressure 103/73 97/63 O2 Sat by Pulse 98 94 95 Oximetry Constitutional: no acute distress, alert Eyes: non-icteric ENT: oropharynx moist Neck: supple, no lymphadenopathy, no JVD Effort: normal Ascultation: Bilateral: clear Percussion: Bilateral: not dull Cardiovascular: irregular rhythm Gastrointestinal: normoactive bowel sounds, soft, non-tender, non-distended (protuberant) Integumentary: normal Extremities: no cyanosis, no edema, pulses normal, no ischemia or petechiae Neurologic: normal mental status, non-focal exam (grossly), pupils equal and round Psychiatric: mood appropriate, affect normal CBC and BMP: 02/27/22 04:07 02/27/22 04:07 ABG, PT/INR, D-dimer: PT/INR, D-dimer PT 31.1 Sec. (12.2-14.9) H 02/26/22 13:38 INR 2.52 (0.87-1.13) H 02/26/22 13:38 Abnormal lab findings: Abnormal Labs 02/24/22 02/24/22 02/24/22 12:57 12:57 12:57 RBC 3.63 L Hgb 11.0 L Hct 33.5 L [place] % (Auto) 12.5 H Baso % (Auto) 2.4 H Baso # (Auto) 0.2 H PT INR Sodium 135 L Potassium Chloride 97.7 L Carbon Dioxide 16 L BUN 28 H Creatinine 5.0 H Glucose 114 H Calcium Phosphorus Magnesium 1.50 L Direct Bilirubin AST 227 H ALT 124 H Alkaline Phosphatase 170 H Total Creatine Kinase 333 H Total Protein Albumin Urine Creatinine Salicylates < 0.3 L Acetaminophen Valproic Acid 15.9 L 02/24/22 02/25/22 02/25/22 12:57 04:36 04:36 RBC Hgb 11.1 L Hct 33.4 L [place] % (Auto) 10.1 H Baso % (Auto) Baso # (Auto) PT INR Sodium 134 L Potassium Chloride 93.7 L Carbon Dioxide 21 L BUN 27 H Creatinine 3.1 H Glucose 117 H Calcium 8.0 L Phosphorus Magnesium Direct Bilirubin 0.5 H AST 220 H ALT 130 H Alkaline Phosphatase 158 H Total Creatine Kinase Total Protein Albumin Urine Creatinine Salicylates Acetaminophen 5.0 L Valproic Acid 02/25/22 02/25/22 02/25/22 05:40 12:09 20:17 RBC Hgb Hct [place] % (Auto) Baso % (Auto) Baso # (Auto) PT INR Sodium 134 L Potassium Chloride 93.6 L Carbon Dioxide BUN Creatinine 2.3 H Glucose 129 H Calcium Phosphorus Magnesium 1.40 L 2.50 H Direct Bilirubin AST ALT Alkaline Phosphatase Total Creatine Kinase Total Protein Albumin Urine Creatinine 139.4 H Salicylates Acetaminophen Valproic Acid 02/26/22 02/26/22 02/26/22 04:24 04:24 13:38 RBC 3.47 L 3.30 L Hgb 10.6 L 10.3 L Hct 31.8 L 30.0 L [place] % (Auto) Baso % (Auto) Baso # (Auto) PT INR Sodium Potassium Chloride 91.8 L Carbon Dioxide BUN Creatinine 2.2 H Glucose 109 H Calcium Phosphorus 1.70 L D Magnesium Direct Bilirubin 0.4 H AST 236 H ALT 163 H Alkaline Phosphatase 157 H Total Creatine Kinase Total Protein 8.4 H Albumin Urine Creatinine Salicylates Acetaminophen Valproic Acid 02/26/22 02/26/22 02/27/22 13:38 13:38 04:07 RBC 3.03 L Hgb 9.2 L Hct 28.1 L [place] % (Auto) Baso % (Auto) Baso # (Auto) PT 31.1 H INR 2.52 H Sodium Potassium Chloride Carbon Dioxide BUN Creatinine 2.2 H Glucose Calcium Phosphorus Magnesium Direct Bilirubin AST ALT Alkaline Phosphatase Total Creatine Kinase Total Protein Albumin Urine Creatinine Salicylates Acetaminophen Valproic Acid 02/27/22 04:07 RBC Hgb Hct [place] % (Auto) Baso % (Auto) Baso # (Auto) PT INR Sodium Potassium 3.5 L Chloride 96.2 L Carbon Dioxide BUN Creatinine 1.8 H Glucose 106 H Calcium 8.2 L Phosphorus Magnesium 1.60 L Direct Bilirubin 0.3 H AST 136 H ALT 124 H Alkaline Phosphatase 132 H Total Creatine Kinase Total Protein Albumin 3.6 L Urine Creatinine Salicylates Acetaminophen Valproic Acid Chest x-ray: report reviewed, image reviewed Additional Studies: CHEST 1 VIEW 02/24/2022 1:11 PM INDICATION / CLINICAL INFORMATION: a fib rvr renal insufficiency. COMPARISON: None available. FINDINGS: SUPPORT DEVICES: None. HEART / MEDIASTINUM: No significant abnormality. LUNGS / PLEURA: No significant pulmonary or pleural abnormality. No pneumothorax. ADDITIONAL FINDINGS: No significant additional findings. IMPRESSION: 1. No acute findings. Allied health notes reviewed: nursing
[2022-02-27] MEDS ORDERED: MAGNESIUM SULFATE 1 GM in SODIUM CHLORIDE 0.9% 50 ML IV ONE (09:00)
[2022-02-27] MEDS: APIXABAN 5 MG TAB PO SCH ×2 (10:05→21:30)
[2022-02-27] MEDS: PANTOPRAZOLE 40 MG TAB PO SCH (10:05)
--- NOTE | 2022-02-27 11:52 | Progress Note ---
Assessment and Plan Assessment and plan: This is a 56-year-old male with known past medical history of HTN, Bipolar disorder, kidney disease, and paroxysmal Afib currently not on any coagulation admitted for Afib with RVR and acute on chronic SHELLIE Hospital Course to Date: 02/25: Remains in Afib with RVR on Amiodarone gtt, BP marginal. Plan for additional Amio bolus and IVF bolus per Cardio. Continue Amio gtt, not a ca ndiate for BB at this time due to low BP. Plan for EGD in the am per GI, continue to hold AC and trend LFTs. Medical records requested from patient's PCP. Renal function improved this am, continue bcarb gtt per Nephrology. 02/26: Converted to SR this am, remains on Amio gtt per Cardio. S/p EGD/Colono scopy today by GI, revealed mild to moderate gastritis and scattered diverticula. GI recommendations noted. D/w Cardio, plan to initiate PO Eliquis today. Renal function continue to improve, continue IVF hydration per nephro. Okay to transfer to Telemetry this afternoon if patient remains stable. 02/27: Patient seen and examined today remains in sinus rhythm. Discussed with cardiology and they would like to monitor him additional day. LFTs are trending down. He remains on amnio changes will be made to the medication. If patient remains stable in a.m. will be discharged. He still does not recall sensing when his heart goes into abnormal rhythm or fast beats. He denies any feeling any sensation. He did report that he experienced some discomfort this morning which he felt was secondary to the endoscopy that he had. 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 We did have 50 minutes counseling on preventive care measures proper hydration cessa tion of alcohol and appropriate follow-up with primary care physician he verbalized understanding. Assessment and Plan #Atrial Fibrillation with RVR #Hypotension - Presented from Neurologist's office due to tachycardia and hypotension - EKG revealed Afib with RVR, HR in the 180s - Amiodarone gtt was initiated - Cardiology consulted, appreciated recommendations - 2D echo noted, LVEF approximately 55%. See report for detail - Converted to SR this am, remains on amio gtt per Cardio. 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 See report for detail - GI recommendations appreciated - Continue to trend LFTs - Follow up with GI outpatient for biopsy result and management of cirrhosis - ETOH cessation education provided. Patient verbalized understanding and agreed with info provided #Acute on Chronic Kidney Injury - Sent from Neurologist's office. Per patient that was his initial visit to his dogger - Baseline renal function is unknown, waiting on records from PCP - Presented with Scr. of 5.0, renal function continue to improve - s/p Bcarb gtt. - Nephrology on consult, appreciated recommendation - Continue gentle IVF hydration per Nephro - Strict intake and output - Avoid nephrotoxic medications; Renally dose medications - Monitor and replace electrolytes as needed #Bipolar Disorder #ETOH Abuse - Continue medical management, no acute exacerbation at this time - Resume home meds once list is available - Daily ETOH abuse, monitor for s/s of withdrawal - CIWA protocol if with s/s of ETOH withdrawal - ETOH cessation education provided. Patient verbalized understanding and agreed with info provided #GI/DVT Prophylaxis - PPI- Protonix - Eliquis initiated - SCD to bilateral ultimately while in bed #Advance Care Planning - Disease education data, care plan, diagnoses, and prognosis were discussed with patient at the bedside. Patient is a FULL code. Patient acknowledged understanding and agreed with current care plan. History Interval history: Patient seen and examined resting comfortably no new complaints. Remains in sinus rhythm this morning. No adverse event reported by nursing staff. His brother was at bedside. Hospitalist Physical - Physical exam Narrative exam: VITAL SIGNS: Reviewed. GENERAL: The patient appears normally developed, seen sitting at the bedside vital signs as documented. HEAD: No signs of head trauma. EYES: Pupils are equal. Extraocular motions intact. EARS: Hearing grossly intact. MOUTH: Oropharynx is normal. NECK: No adenopathy, no JVD. CHEST: Chest with clear breath sounds bilaterally. No wheezes, rales, or rhonchi. CARDIAC: Regular rate and rhythm. S1 and S2, without murmurs, gallops, or rubs. VASCULAR: No Edema. Peripheral pulses normal and equal in all extremities. ABDOMEN: Soft, non tender and non distended. No rebound or guarding, and no masses palpated. Bowel Sounds normal. MUSCULOSKELETAL: Good range of motion of all major joints. Extremities without clubbing, cyanosis or edema. NEUROLOGIC EXAM: Alert and oriented x 3 No focal sensory or strength deficits. Speech normal. Follows commands. PSYCHIATRIC: Mood normal. SKIN: detail exam as documented in skin assessment - Constitutional Vitals: Temp Pulse Resp BP Pulse Ox 98.0 F 86 20 97/63 98 02/27/22 08:21 02/27/22 08:21 02/27/22 10:00 02/27/22 08:21 02/27/22 10:00 General appearance: Present: no acute distress, well-nourished, obese Results - Labs CBC & Chem 7: 02/27/22 04:07 02/27/22 04:07 Labs: Laboratory Last Values WBC 6.5 K/mm3 (4.5-11.0) 02/27/22 04:07 RBC 3.03 M/mm3 (3.65-5.03) L 02/27/22 04:07 Hgb 9.2 gm/dl (11.8-15.2) L 02/27/22 04:07 Hct 28.1 % (35.5-45.6) L 02/27/22 04:07 MCV 93 fl (84-94) 02/27/22 04:07 MCH 30 pg (28-32) 02/27/22 04:07 MCHC 33 % (32-34) 02/27/22 04:07 RDW 15.0 % (13.2-15.2) 02/27/22 04:07 Plt Count 144 K/mm3 (140-440) 02/27/22 04:07 Lymph % (Auto) 32.5 % (13.4-35.0) 02/25/22 04:36 [place] % (Auto) 10.1 % (0.0-7.3) H 02/25/22 04:36 Eos % (Auto) 3.7 % (0.0-4.3) 02/25/22 04:36 Baso % (Auto) 0.9 % (0.0-1.8) 02/25/22 04:36 Lymph # (Auto) 1.8 K/mm3 (1.2-5.4) 02/25/22 04:36 [place] # (Auto) 0.6 K/mm3 (0.0-0.8) 02/25/22 04:36 Eos # (Auto) 0.2 K/mm3 (0.0-0.4) 02/25/22 04:36 Baso # (Auto) 0.0 K/mm3 (0.0-0.1) 02/25/22 04:36 Seg Neutrophils % 52.8 % (40.0-70.0) 02/25/22 04:36 Seg Neutrophils # 2.9 K/mm3 (1.8-7.7) 02/25/22 04:36 PT 31.1 Sec. (12.2-14.9) H 02/26/22 13:38 INR 2.52 (0.87-1.13) H 02/26/22 13:38 APTT 31.3 Sec. (24.2-36.6) 02/26/22 13:38 Sodium 137 mmol/L (137-145) 02/27/22 04:07 Potassium 3.5 mmol/L (3.6-5.0) L 02/27/22 04:07 Chloride 96.2 mmol/L (98-107) L 02/27/22 04:07 Carbon Dioxide 25 mmol/L (22-30) 02/27/22 04:07 Anion Gap 19 mmol/L 02/27/22 04:07 BUN 12 mg/dL (9-20) 02/27/22 04:07 Creatinine 1.8 mg/dL (0.8-1.3) H 02/27/22 04:07 Estimated GFR 47 ml/min 02/27/22 04:07 BUN/Creatinine Ratio 7 % 02/27/22 04:07 Glucose 106 mg/dL (75-100) H 02/27/22 04:07 Osmolality 291 Mosm/kg 02/25/22 12:09 Calcium 8.2 mg/dL (8.4-10.2) L 02/27/22 04:07 Phosphorus 3.40 mg/dL (2.5-4.5) D 02/27/22 04:07 Magnesium 1.60 mg/dL (1.7-2.3) L 02/27/22 04:07 Total Bilirubin 0.60 mg/dL (0.1-1.2) 02/27/22 04:07 Direct Bilirubin 0.3 mg/dL (0-0.2) H 02/27/22 04:07 Indirect Bilirubin 0.3 mg/dL 02/27/22 04:07 AST 136 units/L (5-40) H 02/27/22 04:07 ALT 124 units/L (7-56) H 02/27/22 04:07 Alkaline Phosphatase 132 units/L (35-129) H 02/27/22 04:07 Total Creatine Kinase 333 units/L (55-170) H 02/24/22 12:57 Total Protein 7.1 g/dL (6.3-8.2) 02/27/22 04:07 Albumin 3.6 g/dL (3.9-5) L 02/27/22 04:07 Albumin/Globulin Ratio 1.0 % 02/27/22 04:07 TSH 1.640 mlU/mL (0.270-4.200) 02/24/22 12:57 Urine Color Yellow (Yellow) 02/25/22 05:40 Urine Turbidity Clear (Clear) 02/25/22 05:40 Urine pH 5.0 (5.0-7.0) 02/25/22 05:40 Ur Specific [place] 1.015 (1.003-1.030) 02/25/22 05:40 Urine Protein <15 mg/dl mg/dL (Negative) 02/25/22 05:40 Urine Glucose (UA) Negative mg/dL (Negative) 02/25/22 05:40 Urine Ketones Negative mg/dL (Negative) 02/25/22 05:40 Urine Blood Trace (Negative) 02/25/22 05:40 Urine Nitrite Negative (Negative) 02/25/22 05:40 Ur Reducing Substances Not Reportable 02/25/22 05:40 Urine Bilirubin Negative (Negative) 02/25/22 05:40 Urine Ictotest Not Reportable 02/25/22 05:40 Urine Urobilinogen < 2.0 mg/dL (<2.0) 02/25/22 05:40 Ur Leukocyte Esterase Negative (Negative) 02/25/22 05:40 Urine WBC (Auto) 2.0 /HPF (0.0-6.0) 02/25/22 05:40 Urine RBC (Auto) 1.0 /HPF (0.0-6.0) 02/25/22 05:40 Urine Bacteria (Auto) 1+ /HPF (Negative) 02/25/22 05:40 Urine Eosinophils None seen (None Seen) 02/25/22 05:40 Urine Osmolality 232 Mosm/kg 02/25/22 11:16 Urine Creatinine 139.4 mg/dL (0.1-20.0) H 02/25/22 05:40 Urine Sodium 48 mmol/L 02/25/22 05:40 Salicylates < 0.3 mg/dL (2.8-20.0) L 02/24/22 12:57 Acetaminophen 5.0 ug/mL (10.0-30.0) L 02/24/22 12:57 Valproic Acid 15.9 ug/mL (50-100) L 02/24/22 12:57 [place] 0.1 mmol/L (0.0-1.2) 02/24/22 12:57 [place]/IV: Voiding Method Urinal Active Medications - Current Medications Current Medications: Generic Name Dose Route Start Last Admin Trade Name Freq PRN Reason Stop Dose Admin Acetaminophen 650 mg 02/24/22 15:18 Acetaminophen 325 Mg Tab PO Q4H PRN Pain MILD(1-3)/Fever >100.5/HURLEY Amiodarone HCl 200 mg 02/27/22 12:00 Amiodarone 200 Mg Tab PO BID JUNIOR Apixaban 5 mg 02/26/22 14:00 02/27/22 10:05 Apixaban 5 Mg Tab PO 5 mg Q12HR JUNIOR Administration Protocol Sodium Chloride 1,000 mls @ 100 mls/hr 02/26/22 11:15 02/27/22 05:26 Nacl 0.9% 1000 Ml IV 100 mls/hr DIRECT JUNIOR Administration Morphine Sulfate 2 mg 02/24/22 15:18 Morphine 4 Mg/1 Ml Inj IV Q8H PRN Pain , Severe (7-10) Ondansetron HCl 4 mg 02/24/22 15:18 Ondansetron 4 Mg/2 Ml Inj IV Q8H PRN Nausea And Vomiting Oxycodone/Acetaminophen 1 tab 02/24/22 15:18 Oxycodone /Acetaminophen 5-325mg Tab PO Q12H PRN Pain, Moderate (4-6) Pantoprazole Sodium 40 mg 02/27/22 07:30 02/27/22 10:05 Pantoprazole 40 Mg Tab PO 40 mg QDAC JUNIOR Administration Potassium Chloride 40 meq 02/27/22 07:57 02/27/22 10:05 Potassium Chloride Er 20 Meq Tab PO 02/27/22 12:00 40 meq ONCE NR Administration Sodium Chloride 10 ml 02/24/22 22:00 02/27/22 10:08 Sodium Chloride 0.9% 10 Ml Flush Syringe IV 10 ml BID JUNIOR Administration Sodium Chloride 10 ml 02/24/22 15:18 Sodium Chloride 0.9% 10 Ml Flush Syringe IV PRN PRN LINE FLUSH
--- NOTE | 2022-02-27 12:25 | Progress Note ---
Assessment and Plan 1. Acute kidney injury: Vasomotor SHELLIE in the setting of volume depletion / hypotension and A.Fib with RVR. Renal US negative for hydro. IV fluids. Monitor renal function. Creatinine level improving. Avoid nephrotoxic agents. Meds dosage based on GFR. 2. FEN: Anion-gap metabolic acidosis, improved, monitor. Replete lytes as needed. Monitor lytes and volume status. 3. A.fib with RVR: Amio drip. SR at the time eval. Followed by Cards. Monitor. 4. Hypotension: Likely 2/2 volume depletion. Continue IV fluids. Monitor. 5. Cirrhosis, POA: Followed by GI. EGD & Colonoscopy today. Monitor. 6. Bipolar Disorder // ETOH Abuse: Monitor for withdrawal. CIWA protocol as appropriate. 7. Normocytic Anemia, POA: Trend. Subjective: Patient was seen and examined at the bedside. Doing ok. Examination: General appearance: well-developed, appears stated age, no distress HEENT: atraumatic, [place] Neck: trachea midline Respiratory: ctab Heart: S1S2, regular, no murmur Abdomen: soft, bowel sounds heard, NT Integumentary: no obvious rash Neurologic: AO, able to move extremities Ext: no edema Subjective Date of service: 02/27/22 Principal diagnosis: A. fib with RVR, SHELLIE on CKD Objective - Vital Signs Vital signs: Vital Signs - 12hr 02/27/22 02/27/22 02/27/22 03:27 08:21 10:00 Temperature 98.3 F 98.0 F Pulse Rate 85 86 Respiratory 12 18 20 Rate Blood Pressure 103/73 97/63 O2 Sat by Pulse 94 95 98 Oximetry - Lab 02/27/22 04:07 02/27/22 04:07 Most recent lab results Calcium 8.2 mg/dL (8.4-10.2) L 02/27/22 04:07 Phosphorus 3.40 mg/dL (2.5-4.5) D 02/27/22 04:07 Magnesium 1.60 mg/dL (1.7-2.3) L 02/27/22 04:07 Urine Creatinine 139.4 mg/dL (0.1-20.0) H 02/25/22 05:40 Urine Sodium 48 mmol/L 02/25/22 05:40 Medications & Allergies - Medications Allergies/Adverse Reactions: Allergies No Known Allergies Allergy (Unverified 02/24/22 13:06) Home Medications: Home Medications Medication Instructions Recorded Confirmed Last Taken Type ALPRAZolam [Xanax TAB] 0.5 mg PO HS 02/25/22 02/25/22 Unknown History Mirtazapine [Remeron] 15 mg PO HS 02/25/22 02/25/22 Unknown History QUEtiapine [SEROquel] 400 mg PO HS 02/25/22 02/25/22 Unknown History Valsartan/Hydrochlorothiazide 1 each PO DAILY 02/25/22 02/25/22 Unknown History [Valsartan-Hctz 160-25 mg Tab] amLODIPine [Norvasc] 10 mg PO DAILY 02/25/22 02/25/22 Unknown History clonazePAM [Klonopin] 1 mg PO HS 02/25/22 02/25/22 Unknown History lamoTRIgine [LaMICtal] 25 mg PO DAILY 02/25/22 02/25/22 Unknown History Active Medications: Generic Name Dose Route Start Last Admin Trade Name Freq PRN Reason Stop Dose Admin Acetaminophen 650 mg 02/24/22 15:18 Acetaminophen 325 Mg Tab PO Q4H PRN Pain MILD(1-3)/Fever >100.5/HURLEY Amiodarone HCl 200 mg 02/27/22 22:00 Amiodarone 200 Mg Tab PO BID JUNIOR Apixaban 5 mg 02/26/22 14:00 02/27/22 10:05 Apixaban 5 Mg Tab PO 5 mg Q12HR JUNIOR Administration Protocol Sodium Chloride 1,000 mls @ 100 mls/hr 02/26/22 11:15 02/27/22 05:26 Nacl 0.9% 1000 Ml IV 100 mls/hr DIRECT JUNIOR Administration Morphine Sulfate 2 mg 02/24/22 15:18 Morphine 4 Mg/1 Ml Inj IV Q8H PRN Pain , Severe (7-10) Ondansetron HCl 4 mg 02/24/22 15:18 Ondansetron 4 Mg/2 Ml Inj IV Q8H PRN Nausea And Vomiting Oxycodone/Acetaminophen 1 tab 02/24/22 15:18 Oxycodone /Acetaminophen 5-325mg Tab PO Q12H PRN Pain, Moderate (4-6) Pantoprazole Sodium 40 mg 02/27/22 07:30 02/27/22 10:05 Pantoprazole 40 Mg Tab PO 40 mg QDAC JUNOIR Administration Sodium Chloride 10 ml 02/24/22 22:00 02/27/22 10:08 Sodium Chloride 0.9% 10 Ml Flush Syringe IV 10 ml BID JUNIOR Administration Sodium Chloride 10 ml 02/24/22 15:18 Sodium Chloride 0.9% 10 Ml Flush Syringe IV PRN PRN LINE FLUSH
--- NOTE | 2022-02-27 13:29 | Progress Note ---
Assessment and Plan Patient is a 56 y/o old male with a past medical history of CKD, bipolar disorder, PAF who reports to the ED today after being sent by his melter helper office after being found in A. fib with RVR and being told he was dehydrated Afib with RVR CKD-nephrology consulted Bipolar disorder Hypomagnesemia Echo 02/24/2022-technically limited study due to poor endocardial definition. Grossly normal LV function approximately 55%. No pericardial effusion. Right ventricular systolic function is normal Limited echo 02/26/2022-EF 55 to 60% with normal LV segmental wall motion. Plan: Telemetry reviewed patient remains in sinus rhythm. We will stop IV amiodarone and convert amiodarone 200 mg p.o. twice daily Continue to closely monitor on telemetry to see if patient converts back to A. fib If patient remains in sinus rhythm okay to discharge tomorrow from a cardiac standpoint LFTs appear to be stable and has not increased Per documentation GI has cleared patient for anticoagulation.. Anticoagulation with Eliquis Patient has been set up for a 1 week event monitor as an outpatient Plan of care discussed with patient who verbalized understanding and acknowledgment Patient has a follow-up appointment with Dr. Ernie Holden on 04/10/2022 at 3 PM in our [place] location. Phone #[phone] Patient seen in conjunction with Dr. Peña who agrees with this plan of care - Patient Problems (1) Atrial fibrillation with RVR Current Visit: Yes Status: Acute (2) Renal insufficiency Current Visit: Yes Status: Acute (3) Hypomagnesemia Current Visit: Yes Status: Acute (4) Elevated liver function tests Current Visit: Yes Status: Acute (5) Bipolar disorder Current Visit: Yes Status: Acute (6) Cirrhosis of liver Current Visit: Yes Status: Acute (7) History of gastric ulcer Current Visit: Yes Status: Acute Subjective Date of service: 02/27/22 Principal diagnosis: A. fib with RVR, SHELLIE on CKD Interval history: Patient transferred to telemetry Patient remains in sinus 70s to 80s Objective Vital Signs Temp Pulse Pulse Resp BP Pulse Ox 02/27/22 11:20 98.0 F 82 18 83/48 97 02/27/22 10:00 20 98 02/27/22 08:21 98.0 F 86 18 97/63 95 02/27/22 03:27 98.3 F 85 12 103/73 94 02/27/22 00:00 20 98 02/26/22 22:58 97.8 F 80 19 108/71 97 02/26/22 20:51 82 14 111/77 100 02/26/22 20:41 76 11 L 111/77 100 02/26/22 20:31 81 10 L 111/77 100 02/26/22 20:21 82 16 111/77 100 02/26/22 20:00 77 9 L 111/77 100 02/26/22 19:50 81 20 99 02/26/22 19:48 81 02/26/22 19:37 98.3 F 02/26/22 19:00 80 8 L 118/73 100 02/26/22 18:15 89 17 120/69 98 02/26/22 17:50 90 23 118/73 97 02/26/22 17:40 85 20 119/71 98 02/26/22 17:30 87 14 115/76 02/26/22 17:20 85 16 100 02/26/22 17:10 91 H 13 115/74 99 02/26/22 17:00 86 20 116/73 98 02/26/22 16:50 83 17 123/76 98 02/26/22 16:40 85 17 118/74 98 02/26/22 16:30 93 H 22 118/70 98 02/26/22 16:20 80 19 115/76 99 02/26/22 16:10 79 10 L 113/76 99 02/26/22 16:00 74 85 10 L 119/79 100 02/26/22 15:50 75 11 L 117/84 02/26/22 15:40 76 16 116/78 98 02/26/22 15:30 76 12 114/75 100 02/26/22 15:20 75 9 L 109/71 100 02/26/22 15:10 78 9 L 112/72 98 02/26/22 15:00 76 9 L 107/75 99 02/26/22 14:50 78 15 106/73 99 02/26/22 14:40 82 11 L 116/74 100 02/26/22 14:30 86 11 L 109/75 99 02/26/22 14:20 79 9 L 112/73 100 02/26/22 14:10 84 22 108/69 96 02/26/22 14:00 79 9 L 111/72 100 02/26/22 13:50 79 9 L 106/74 100 02/26/22 13:40 79 14 110/71 100 02/26/22 13:30 82 13 118/81 98 - Physical Examination General: No Apparent Distress HEENT: Positive: PERRL Neck: Positive: trachea midline Cardiac: Positive: Reg Rate and Rhythm Lungs: Positive: Normal Breath Sounds Neuro: Positive: Grossly Intact Abdomen: Positive: Soft Skin: Negative: Rash, Suspicious Lesions, Ulceration Extremities: Present: upper extr. pulses. Absent: edema - Labs and Meds Cardiac Enzymes 02/27/22 Range/Units 04:07 AST 136 H (5-40) units/L Coagulation 02/26/22 Range/Units 13:38 PT 31.1 H (12.2-14.9) Sec. INR 2.52 H (0.87-1.13) APTT 31.3 (24.2-36.6) Sec. CBC 02/26/22 02/27/22 Range/Units 13:38 04:07 WBC 6.7 6.5 (4.5-11.0) K/mm3 RBC 3.30 L 3.03 L (3.65-5.03) M/mm3 Hgb 10.3 L 9.2 L (11.8-15.2) gm/dl Hct 30.0 L 28.1 L (35.5-45.6) % Plt Count 143 144 (140-440) K/mm3 Comprehensive Metabolic Panel 02/26/22 02/27/22 Range/Units 13:38 04:07 Sodium 137 (137-145) mmol/L Potassium 3.5 L (3.6-5.0) mmol/L Chloride 96.2 L (98-107) mmol/L Carbon Dioxide 25 (22-30) mmol/L BUN 12 (9-20) mg/dL Creatinine 2.2 H 1.8 H (0.8-1.3) mg/dL Glucose 106 H (75-100) mg/dL Calcium 8.2 L (8.4-10.2) mg/dL Direct Bilirubin 0.3 H (0-0.2) mg/dL Indirect Bilirubin 0.3 mg/dL AST 136 H (5-40) units/L ALT 124 H (7-56) units/L Alkaline Phosphatase 132 H (35-129) units/L Total Protein 7.1 (6.3-8.2) g/dL Albumin 3.6 L (3.9-5) g/dL - Imaging and Cardiology Echo: report reviewed - Telemetry EKG Rhythm: Sinus Rhythm - EKG Sinus rhythms and dysrhythmias: sinus rhythm Repolarization changes or abnormalities: nonspecific abnormality, ST segment, and/or T wave - Allied health notes Allied health notes reviewed: nursing
[2022-02-27] MEDS: AMIODARONE 200 MG TAB PO SCH (21:30)
[2022-02-28 05:08] VITALS: BP 121/89
[2022-02-28 06:27] LABS: Hematocrit 27.4 % (35.5-45.6); Hemoglobin 9.1 gm/dl (11.8-15.2); Mean Corpuscular HGB Conc 33 % (32-34); Mean Corpuscular Volume 93 fl (84-94); Platelet Count 140 K/mm3 (140-440); Red Blood Count 2.94 M/mm3 (3.65-5.03); Red Cell Distribution Width 15.4 % (13.2-15.2)
[2022-02-28 06:44] LABS: Calcium 8.8 mg/dL (8.4-10.2)
--- NOTE | 2022-02-28 08:07 | Progress Note ---
Assessment and Plan 56 YO Male with HTN, Atrial Fib not currently taking therapeutic anticoagulation, Bipolar Disorder presents to ED for evaluation. Patient complained palpatations. Patient states that he presented to his heel attacher wood office today for routine evaluation. Upon arrival and during his evaluation the patient was found to have a heart rate in the 180s. Patient found to be in atrial fibrillation with RVR. Patient was instructed to seek further care at [facility]. Patient transported to [facility] via private vehicle for further care and evaluation of the aforementioned symptoms. The patient was seen and evaluated in the emergency department. Patient found to have atrial fibrillation with rapid ventricular response with a heart rate in the 180s, with ATN, metabolic acidosis, elevated liver function test. Patient admitted to telemetry due to increased risk of worsening symptoms and for medical stabilization. Patient initiated on amiodarone drip with eventual control of patient heart rate. Cardiology team consulted in ED. Nephrology team consulted in ED. Patient denies fever, chills, chest pain, palpitation, productive cough, skin rash, recent contact, or known exposure to COVID-19. GI team consulted in ED due to history of esophageal varices. Patient has history of cirrhosis of Liver and GERD. Patient has history esophageal varices binding. Also has history of back surgery. Patient has history of smoking 1 pack x 10 years. Stopped smoking 25 years ago. History of alcohol abuse. Denies drug abuse. 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 No known drug allergies. Patient awake, Resting on room air. O2 saturation 98%. No complaint of shortness of breath, chest pain or cough. Patient afebrile. No leukocytosis, Blood pressure 121/89, MAP 65, Pulse 85, respirations 20. Chest xray 02/24/22 reported no acute findings. Patient is on Apixaban, Protonix and Amiodarone. - Patient Problems (1) Atrial fibrillation with RVR Status: Acute Plan to address problem: Patient is on Apixaban. Management as per cardiology. (2) Hypotension Status: Acute Plan to address problem: Blood pressure improved . Blood pressure 121/89 (3) Acute kidney injury (SHELLIE) with acute tubular necrosis (ATN) Status: Acute Plan to address problem: Management as per nephrology. (4) Bipolar disorder Status: Chronic Plan to address problem: Management as per primary care. Consult psychiatry if needed. (5) Cirrhosis of liver Status: Chronic Qualifiers: Hepatic cirrhosis type: alcoholic cirrhosis Plan to address problem: Management as per primary care and Gastroenterology. (6) History of gastric ulcer Status: Chronic Plan to address problem: Management as per primary care and gastroenterology. Subjective Date of service: 02/28/22 Principal diagnosis: A. fib with RVR, SHELLIE on CKD Interval history: 56 YO Male with HTN, Atrial Fib not currently taking therapeutic anticoagulation, Bipolar Disorder presents to ED for evaluation. Patient complained palpatations. Patient states that he presented to his heel attacher wood office today for routine evaluation. Upon arrival and during his evaluation the patient was found to have a heart rate in the 180s. Patient found to be in atrial fibrillation with RVR. Patient was instructed to seek further care at [facility]. Patient transported to [facility] via private vehicle for further care and evaluation of the aforementioned symptoms. The patient was seen and evaluated in the emergency department. Patient found to have atrial fibrillation with rapid ventricular response with a heart rate in the 180s, with ATN, metabolic acidosis, elevated liver function test. Patient admitted to telemetry due to increased risk of worsening symptoms and for medical stabilization. Patient initiated on amiodarone drip with eventual control of patient heart rate. Cardiology team consulted in ED. Nephrology team consulted in ED. Patient denies fever, chills, chest pain, palpitation, productive cough, skin rash, recent contact, or known exposure to COVID-19. GI team consulted in ED due to history of esophageal varices. Patient has history of cirrhosis of Liver and GERD. Patient has history esophageal varices binding. Also has history of back surgery. Patient has history of smoking 1 pack x 10 years. Stopped smoking 25 years ago. History of alcohol abuse. Denies drug abuse. 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 No known drug allergies. Patient awake, Resting on room air. O2 saturation 98%. No complaint of shortness of breath, chest pain or cough. Patient afebrile. No leukocytosis, Blood pressure 121/89, MAP 65, Pulse 85, respirations 20. Chest xray 02/24/22 reported no acute findings. Patient is on Apixaban, Protonix and Amiodarone. Objective Vital Signs - 12hr 02/27/22 02/27/22 02/28/22 22:00 22:46 00:26 Temperature 98.2 F Pulse Rate 80 79 Respiratory 20 18 Rate Blood Pressure 133/88 O2 Sat by Pulse 98 99 Oximetry 02/28/22 04:10 Temperature 98.0 F Pulse Rate 85 Respiratory 20 Rate Blood Pressure 121/89 O2 Sat by Pulse 98 Oximetry Constitutional: no acute distress, alert Eyes: non-icteric ENT: oropharynx moist Neck: supple, no lymphadenopathy, no JVD Effort: normal Ascultation: Bilateral: clear Percussion: Bilateral: not dull Cardiovascular: irregular rhythm Gastrointestinal: normoactive bowel sounds, soft, non-tender, non-distended (protuberant) Integumentary: normal Extremities: no cyanosis, no edema, pulses normal, no ischemia or petechiae Neurologic: normal mental status, non-focal exam (grossly), pupils equal and round Psychiatric: mood appropriate, affect normal CBC and BMP: 02/28/22 05:42 02/28/22 05:42 ABG, PT/INR, D-dimer: PT/INR, D-dimer PT 31.1 Sec. (12.2-14.9) H 02/26/22 13:38 INR 2.52 (0.87-1.13) H 02/26/22 13:38 Abnormal lab findings: Abnormal Labs 02/24/22 02/24/22 02/24/22 12:57 12:57 12:57 RBC 3.63 L Hgb 11.0 L Hct 33.5 L RDW [place] % (Auto) 12.5 H Baso % (Auto) 2.4 H Baso # (Auto) 0.2 H PT INR Sodium 135 L Potassium Chloride 97.7 L Carbon Dioxide 16 L BUN 28 H Creatinine 5.0 H Glucose 114 H Calcium Phosphorus Magnesium 1.50 L Direct Bilirubin AST 227 H ALT 124 H Alkaline Phosphatase 170 H Total Creatine Kinase 333 H Total Protein Albumin Urine Creatinine Salicylates < 0.3 L Acetaminophen Valproic Acid 15.9 L 02/24/22 02/25/22 02/25/22 12:57 04:36 04:36 RBC Hgb 11.1 L Hct 33.4 L RDW [place] % (Auto) 10.1 H Baso % (Auto) Baso # (Auto) PT INR Sodium 134 L Potassium Chloride 93.7 L Carbon Dioxide 21 L BUN 27 H Creatinine 3.1 H Glucose 117 H Calcium 8.0 L Phosphorus Magnesium Direct Bilirubin 0.5 H AST 220 H ALT 130 H Alkaline Phosphatase 158 H Total Creatine Kinase Total Protein Albumin Urine Creatinine Salicylates Acetaminophen 5.0 L Valproic Acid 02/25/22 02/25/22 02/25/22 05:40 12:09 20:17 RBC Hgb Hct RDW [place] % (Auto) Baso % (Auto) Baso # (Auto) PT INR Sodium 134 L Potassium Chloride 93.6 L Carbon Dioxide BUN Creatinine 2.3 H Glucose 129 H Calcium Phosphorus Magnesium 1.40 L 2.50 H Direct Bilirubin AST ALT Alkaline Phosphatase Total Creatine Kinase Total Protein Albumin Urine Creatinine 139.4 H Salicylates Acetaminophen Valproic Acid 02/26/22 02/26/22 02/26/22 04:24 04:24 13:38 RBC 3.47 L 3.30 L Hgb 10.6 L 10.3 L Hct 31.8 L 30.0 L RDW [place] % (Auto) Baso % (Auto) Baso # (Auto) PT INR Sodium Potassium Chloride 91.8 L Carbon Dioxide BUN Creatinine 2.2 H Glucose 109 H Calcium Phosphorus 1.70 L D Magnesium Direct Bilirubin 0.4 H AST 236 H ALT 163 H Alkaline Phosphatase 157 H Total Creatine Kinase Total Protein 8.4 H Albumin Urine Creatinine Salicylates Acetaminophen Valproic Acid 02/26/22 02/26/22 02/27/22 13:38 13:38 04:07 RBC 3.03 L Hgb 9.2 L Hct 28.1 L RDW [place] % (Auto) Baso % (Auto) Baso # (Auto) PT 31.1 H INR 2.52 H Sodium Potassium Chloride Carbon Dioxide BUN Creatinine 2.2 H Glucose Calcium Phosphorus Magnesium Direct Bilirubin AST ALT Alkaline Phosphatase Total Creatine Kinase Total Protein Albumin Urine Creatinine Salicylates Acetaminophen Valproic Acid 02/27/22 02/28/22 02/28/22 04:07 05:42 05:42 RBC 2.94 L Hgb 9.1 L Hct 27.4 L RDW 15.4 H Am[place] % (Auto) Baso % (Auto) Baso # (Auto) PT INR Sodium Potassium 3.5 L Chloride 96.2 L Carbon Dioxide BUN 8 L Creatinine 1.8 H 1.6 H Glucose 106 H Calcium 8.2 L Phosphorus Magnesium 1.60 L Direct Bilirubin 0.3 H AST 136 H ALT 124 H Alkaline Phosphatase 132 H Total Creatine Kinase Total Protein Albumin 3.6 L Urine Creatinine Salicylates Acetaminophen Valproic Acid Allied health notes reviewed: nursing
--- NOTE | 2022-02-28 08:32 | Discharge Summary ---
Providers - Providers Date of Admission: 02/24/22 15:18 Date of discharge: 02/28/22 Attending physician: DAYANA SCHWAB MD 02/24/22 13:54 Consult to Physician [CONS] Urgent Comment: Consulting Provider: MALCOM QUIJANO Physician Instructions: Reason For Exam: afib rvr 02/24/22 13:55 Consult to Physician [CONS] Urgent Comment: Consulting Provider: DONNA OSBORNE Physician Instructions: Reason For Exam: renal insufficiency 02/24/22 14:35 Consult to Physician [CONS] Urgent Comment: Consulting Provider: ADELA DICK Physician Instructions: Reason For Exam: History of varices, clearance to initiate anticoag 02/25/22 00:28 Consult to Physician [CONS] Routine Comment: kandis/ hemal Consulting Provider: JHONNY AQUINO Physician Instructions: Reason For Exam: Afib with RVR on Amiodarone drip Primary care physician: TRUE BRIGGS Hospitalization Reason for admission: Afib with RVR Condition: Serious Hospital course: 56-year-old male history of hypertension, paroxysmal atrial fibrillation who presented with palpitation. He was found to be in atrial fibrillation with RVR. He was also found to have acute on chronic kidney injury. He was admitted to ICU and started on amiodarone drip. Gastroenterology was consulted to evaluate for risk of anticoagulation use due to patient having esophageal varices. EGD and colonoscopy were negative for acute bleeds. Echocardiogram showed LVEF 55- 60%. Nephrology was consulted for management of SHELLIE. Renal ultrasound showed no significant abnormalities. His creatinine improved from 5-1.6 prior to discharge. Once stable, patient was discharged home with cardiology follow-up. Disposition: 01 HOME / SELF CARE / HOMELESS Final Discharge Diagnosis (Prints w/discharge instructions): Atrial fibrillation with RVR. Hypotension. Acute on chronic kidney injury secondary to vasomotor nephropathy. History of esophageal varices. Probable alcoholic cirrhosis. Bipolar disorder. Alcohol dependence Time spent for discharge: 35 minutes Core Measure Documentation - Palliative Care Palliative Care/ Comfort Measures: Not Applicable - Core Measures Any of the following diagnoses?: none Exam - Physical Exam Narrative exam: GENERAL: Well-developed well-nourished. In no acute distress. HEENT: Normocephalic. Atraumatic. NECK: Supple. CHEST/LUNGS: CTAB on room air HEART/CARDIOVASCULAR: RRR. No murmur, rubs or gallops appreciated. ABDOMEN: +BS. NT/ND. SKIN: No rashes noted. NEURO: No focal motor deficit. Follows all commands. MUSCULOSKELETAL: No joint effusion EXTREMITIES: No cyanosis, clubbing or edema. PSYCH: Cooperative. - Constitutional Vitals: Temp Pulse Resp BP Pulse Ox 98.0 F 85 20 121/89 98 02/28/22 04:10 02/28/22 04:10 02/28/22 04:10 02/28/22 04:10 02/28/22 04:10 Plan Care Plan Goals: Follow-up with a child center assistant to review biopsy results and manage your liver disease. Please follow-up with your primary care provider to help manage all your medications. You have a follow-up appointment with Dr. Ernie Holden (the House Cleaner) on 04/10/2022 at 3 PM in our [place] location. The address is [address] [place] [address]. Call Phone #[phone] for further information. Follow up with: TRUE BRIGGS MD [Primary Care Provider] - 3-5 Days CHI RDZ MD [Staff Physician] - 7 Days Prescriptions: Amiodarone [Cordarone 200 MG TAB] 200 mg PO BID 30 Days #60 tablet Apixaban [Eliquis] 5 mg PO Q12HR 90 Days #180 tablet Pantoprazole [Protonix TAB] 40 mg PO QDAC 30 Days #30 tablet
[2022-02-28] MEDS: PANTOPRAZOLE 40 MG TAB PO SCH (09:46)
[2022-02-28] MEDS: APIXABAN 5 MG TAB PO SCH (09:46)
[2022-02-28] MEDS: AMIODARONE 200 MG TAB PO SCH (09:46)
--- NOTE | 2022-02-28 10:10 | Progress Note ---
Assessment and Plan Continue PO Amiodarone 200mg BID. Will be decreased to daily dosing in the outpatient setting. Continue anticoagulation with Eliquis 5mg BID. Cleared by GI. Pt has been set up for a 1-week event monitor as an outpatient. LFTs will be re-checked as an outpatient as well. Otherwise stable cardiac status. No objection to discharge from a Cardiology standpoint. Follow-up with Dr. Margarita Peña in our [place] office on 04/10/2022 @ 3pm ([phone]). Pt seen in conjunction with Dr. Hill, who agrees with the assessment and plan of care. - Patient Problems (1) Atrial fibrillation with RVR Status: Acute (2) Cirrhosis of liver Status: Chronic Qualifiers: Hepatic cirrhosis type: alcoholic cirrhosis (3) CKD (chronic kidney disease) Status: Chronic (4) Bipolar disorder Status: Chronic (5) ETOH abuse Status: Chronic (6) History of gastric ulcer Status: Chronic Subjective Date of service: 02/28/22 Principal diagnosis: AF with RVR Interval history: Resting comfortably in bed with no cardiac complaints. SR 70s on tele, no events. Objective Vital Signs Temp Pulse Resp BP Pulse Ox 02/28/22 04:10 98.0 F 85 20 121/89 98 02/28/22 00:26 98.2 F 79 18 133/88 99 02/27/22 22:46 80 02/27/22 22:00 20 98 02/27/22 19:46 97.9 F 78 20 122/89 100 02/27/22 16:26 98.1 F 82 18 118/80 99 02/27/22 11:20 98.0 F 82 18 83/48 97 - Physical Examination General: No Apparent Distress HEENT: Positive: EOMI, Normocephaly Neck: Positive: trachea midline. Negative: JVD/HJR Cardiac: Positive: Reg Rate and Rhythm, S1/S2 Lungs: Positive: clear to auscultation Neuro: Positive: Grossly Intact Abdomen: Positive: Soft Skin: Negative: Rash Musculoskeletal: No Pain Extremities: Present: upper extr. pulses, warm. Absent: edema - Labs and Meds CBC 02/28/22 Range/Units 05:42 WBC 6.0 (4.5-11.0) K/mm3 RBC 2.94 L (3.65-5.03) M/mm3 Hgb 9.1 L (11.8-15.2) gm/dl Hct 27.4 L (35.5-45.6) % Plt Count 140 (140-440) K/mm3 Comprehensive Metabolic Panel 02/28/22 Range/Units 05:42 Sodium 140 (137-145) mmol/L Potassium 4.5 D (3.6-5.0) mmol/L Chloride 105.3 (98-107) mmol/L Carbon Dioxide 23 (22-30) mmol/L BUN 8 L (9-20) mg/dL Creatinine 1.6 H (0.8-1.3) mg/dL Glucose 97 (75-100) mg/dL Calcium 8.8 (8.4-10.2) mg/dL - Imaging and Cardiology EKG: report reviewed, image reviewed Echo: report reviewed - Telemetry EKG Rhythm: Sinus Rhythm - EKG Sinus rhythms and dysrhythmias: sinus rhythm Repolarization changes or abnormalities: nonspecific abnormality, ST segment, and/or T wave
--- NOTE | 2022-02-28 11:49 | Progress Note ---
Assessment and Plan 1. Acute kidney injury: Vasomotor SHELLIE in the setting of volume depletion / hypotension and A.Fib with RVR. Renal US negative for hydro. IV fluids. Monitor renal function. Creatinine level improving. Avoid nephrotoxic agents. Meds dosage based on GFR. 2. FEN: Anion-gap metabolic acidosis, improved, monitor. Replete lytes as needed. Monitor lytes and volume status. 3. A.fib with RVR: Amio. SR at the time eval. Followed by Cards. Monitor. 4. Hypotension: Likely 2/2 volume depletion. Improved. Monitor. 5. Cirrhosis, POA: Followed by GI. S/p EGD & Colonoscopy. Monitor. 6. Bipolar Disorder // ETOH Abuse: Monitor for withdrawal. CIWA protocol as appropriate. Counseled. 7. Normocytic Anemia, POA: Trend. Patient has an appt with me in 3 weeks. Subjective: Patient was seen and examined at the bedside. Doing ok. Examination: General appearance: well-developed, appears stated age, no distress HEENT: atraumatic, CARLITOS Neck: trachea midline Respiratory: ctab Heart: S1S2, regular, no murmur Abdomen: soft, bowel sounds heard, NT Integumentary: no obvious rash Neurologic: AO, able to move extremities Ext: no edema Subjective Date of service: 02/28/22 Principal diagnosis: AF with RVR Objective - Vital Signs Vital signs: Vital Signs - 12hr 02/28/22 02/28/22 00:26 04:10 Temperature 98.2 F 98.0 F Pulse Rate 79 85 Respiratory 18 20 Rate Blood Pressure 133/88 121/89 O2 Sat by Pulse 99 98 Oximetry - Lab 02/28/22 05:42 02/28/22 05:42 Most recent lab results Calcium 8.8 mg/dL (8.4-10.2) 02/28/22 05:42 Phosphorus 3.40 mg/dL (2.5-4.5) D 02/27/22 04:07 Magnesium 1.60 mg/dL (1.7-2.3) L 02/27/22 04:07 Urine Creatinine 139.4 mg/dL (0.1-20.0) H 02/25/22 05:40 Urine Sodium 48 mmol/L 02/25/22 05:40 Medications & Allergies - Medications Allergies/Adverse Reactions: Allergies No Known Allergies Allergy (Unverified 02/24/22 13:06) Home Medications: Home Medications Medication Instructions Recorded Confirmed Last Taken Type ALPRAZolam [Xanax TAB] 0.5 mg PO HS 02/25/22 02/25/22 Unknown History Mirtazapine [Remeron] 15 mg PO HS 02/25/22 02/25/22 Unknown History QUEtiapine [SEROquel] 400 mg PO HS 02/25/22 02/25/22 Unknown History amLODIPine 10 mg PO DAILY 02/25/22 02/25/22 Unknown History lamoTRIgine [LaMICtal] 25 mg PO DAILY 02/25/22 02/25/22 Unknown History Amiodarone [Cordarone 200 MG TAB] 200 mg PO BID 30 Days #60 tablet 02/28/22 Unknown Rx Apixaban [Eliquis] 5 mg PO Q12HR 90 Days #180 tablet 02/28/22 Unknown Rx Pantoprazole [Protonix TAB] 40 mg PO QDAC 30 Days #30 tablet 02/28/22 Unknown Rx Active Medications: Generic Name Dose Route Start Last Admin Trade Name Freq PRN Reason Stop Dose Admin Acetaminophen 650 mg 02/24/22 15:18 Acetaminophen 325 Mg Tab PO Q4H PRN Pain MILD(1-3)/Fever >100.5/HURLEY Amiodarone HCl 200 mg 02/27/22 22:00 02/28/22 09:46 Amiodarone 200 Mg Tab PO 200 mg BID JUNIOR Administration Apixaban 5 mg 02/26/22 14:00 02/28/22 09:46 Apixaban 5 Mg Tab PO 5 mg Q12HR JUNIOR Administration Protocol Sodium Chloride 1,000 mls @ 100 mls/hr 02/26/22 11:15 02/27/22 05:26 Nacl 0.9% 1000 Ml IV 100 mls/hr DIRECT JUNIOR Administration Morphine Sulfate 2 mg 02/24/22 15:18 Morphine 4 Mg/1 Ml Inj IV Q8H PRN Pain , Severe (7-10) Ondansetron HCl 4 mg 02/24/22 15:18 Ondansetron 4 Mg/2 Ml Inj IV Q8H PRN Nausea And Vomiting Oxycodone/Acetaminophen 1 tab 02/24/22 15:18 Oxycodone /Acetaminophen 5-325mg Tab PO Q12H PRN Pain, Moderate (4-6) Pantoprazole Sodium 40 mg 02/27/22 07:30 02/28/22 09:46 Pantoprazole 40 Mg Tab PO 40 mg QDAC JUNIOR Administration Sodium Chloride 10 ml 02/24/22 22:00 02/28/22 09:48 Sodium Chloride 0.9% 10 Ml Flush Syringe IV 10 ml BID JUNIOR Administration Sodium Chloride 10 ml 02/24/22 15:18 Sodium Chloride 0.9% 10 Ml Flush Syringe IV PRN PRN LINE FLUSH
== END 2022-02-28 12:17 | disposition home or self-care (01) | DRG 308 ==
LOC: ED 11:33 → 4A 15:18 → CC1 02-25 00:57 → 4A 02-26 21:12
PROVIDERS: ADMIT Internal Medicine; ATTEND Student in an Organized Health Care Education/Training Program
PROC: 0DB68ZX Excision of Stomach, Via Natural or Artificial Opening Endoscopic, Diagnostic (ICD-10-PCS; principal; 2022-02-26)
PROC: 0DJD8ZZ Inspection of Lower Intestinal Tract, Via Natural or Artificial Opening Endoscopic (ICD-10-PCS; 2022-02-26)
DX: I48.91 Unspecified atrial fibrillation (principal); N17.0 Acute kidney failure with tubular necrosis; E87.2 Acidosis; F31.9 Bipolar disorder, unspecified; E83.42 Hypomagnesemia; I12.9 Hypertensive chronic kidney disease with stage 1 through stage 4 chronic kidney disease, or unspecified chronic kidney disease; N18.9 Chronic kidney disease, unspecified; D64.9 Anemia, unspecified; I95.9 Hypotension, unspecified; K74.60 Unspecified cirrhosis of liver; Y90.9 Presence of alcohol in blood, level not specified; K29.70 Gastritis, unspecified, without bleeding; K29.80 Duodenitis without bleeding; K44.9 Diaphragmatic hernia without obstruction or gangrene; K64.8 Other hemorrhoids; F10.20 Alcohol dependence, uncomplicated; Z79.01 Long term (current) use of anticoagulants; Z82.49 Family history of ischemic heart disease and other diseases of the circulatory system; Z83.3 Family history of diabetes mellitus
CPT/HCPCS: 36415; 71045; 76770; 80048; 80053; 80076; 80164; 80178; 80320; 81001; 82550; 82565; 82570; 83735; 83930; 83935; 84100; 84300; 84443; 85025; 85027; 85610; 85730; 88305; 88342; 89050; 93005; 93306; 93308; 93321; 93325; G0378; J3490; J7060; J7510; C8929; C9113; G0480; J0282; J1644; J2704; J3475; J7030; J7040; J7050